=== PATIENT | female | born 1945 | race Caucasian/White ===

== ENCOUNTER 2017-05-09 02:52 | Emergency (ER) | payer OTHER ==
[~2017-05-09] VITALS: Ht 141 cm; Wt 87.6 kg
[~2017-05-09 02:52] MED LIST: ASPI-435 PO; BUPR-79 PO; CHOL1CHW16 PO; DESL5TAB5 PO; GLIM2TAB2 PO; IBUP-103 PO; LISI5TAB3 PO; METF500T5 PO; PRLSR20 PO
[2017-05-09 03:05] VITALS: TEMP 36.6; Ht 141 cm; Wt 87.6 kg
--- NOTE | 2017-05-09 03:37 | EMERGENCY ROOM VISIT NOTE ---
History Report prepared by Mayra: Bebeto Medrano Under the Supervision of: Dr. Lauren Galeas D.O. First contact with patient: 03:20 Chief Complaint: ALLERGIC REACTION Stated Complaint: HIVES; SWOLLEN AND ITCHY History of Present Illness The patient is a 71 year old female who presents to the Emergency Room with complaints of a constant allergic reaction that started around 2100. She rates her pain as a 5/10 in severity. The patient reports that she noticed itchy hives on her lower extremities, abdominal pain, lower back, and head. She states that she took 50 mg of Benadryl at 2200 and 2300 and a Benadryl cream to help relieve symptoms. The patient states that she recently was diagnosed with a UTI four days ago and was given Bactrim. She reports that her last dosage was around 2200. The patient states that she has a history of UTIs and typically gets them 2-3 times a year for the last two years. She reports that she has one more pill left to finish her bottle prescription. The patient reports that she has had a similar allergic reaction in the past when she was given a different antibiotic for her UTI. She states that she has a history of Diabetes and was given Januvia in January. The patient states that Januvia caused her to develop a UTI. She also states that she has been stressed for the last couple of days. The patient denies headache, change in vision, fevers, chest pain, shortness of breath, nausea, vomiting, diarrhea, pain with urination, and melena. Source of History: patient Onset: 2099 Position: other (global) Symptom Intensity: 5/10 Quality: other (itching) Timing: constant Associated Symptoms: No chest pain, No SOB Review of Systems See HPI for pertinent positives & negatives. A total of 10 systems reviewed and were otherwise negative. Past Medical & Surgical Medical Problems: (1) Acute cholecystitis due to biliary calculus (2) Anxiety (3) Asthma (4) Bilateral tubal ligation (5) Bronchitis (6) Carpal tunnel syndrome (7) Deep venous thrombosis of lower extremity (8) Depression (9) Gastroesophageal reflux disease (10) IBS (11) Incontinence (12) Rotator cuff surgery Family History Depression Diabetes mellitus Hypertension Kidney disease Seizures Social History Smoking Status: Never Smoker Alcohol Use: none Drug Use: none Marital Status: Housing Status: lives alone Occupation Status: retired Current/Historical Medications Scheduled Aspirin (Aspirin 81), 81 MG PO QAM Cholecalciferol (Vitamin D3 Adult Gummies), 1,000 UNIT PO DAILY Desloratadine (Desloratadine Odt), 5 MG PO QAM Empagliflozin (Jardiance), 10 MG PO QAM Glimepiride (Glimepiride), 4 MG PO QAM Lisinopril (Lisinopril), 5 MG PO DAILY Metformin Hcl Er (Glucophage Er), 500 MG PO TID Omeprazole (Prilosec), 20 MG PO QAM Ranitidine Hcl (Zantac), 150 MG PO BID Sulfa/Trimethoprim (Bactrim Ds 800MG/160MG), Unknown Dose PO BID Scheduled PRN Diphenhydramine Hcl (Benadryl), 50 MG PO Q6H PRN for ALLERGIC REACTION Ibuprofen Tab (Advil), 400-600 MG PO UD PRN for arthritis Allergies Coded Allergies: Ciprofloxacin (Verified Allergy, Mild, RASH ITCHY, 05/09/17) Latex (Verified Allergy, Unknown, Itchiness and swelling., 05/09/17) Sulfamethoxazole w/Trimethoprim (Verified Allergy, Unknown, urticaria, 05/09) Amoxicillin (Verified Adverse Reaction, Mild, DOES NOT WANT TO TAKE DUE TO YEAST INFECTION, 05/09/17) Codeine (Verified Adverse Reaction, Mild, UPSET UPSET, 05/09/17) Morphine (Verified Adverse Reaction, Unknown, UPSET STOMACH, 05/09/17) Physical Exam Vital Signs Date Time Temp Pulse Resp B/P (MAP) Pulse Ox O2 Delivery O2 Flow Rate FiO2 05/09/17 07:17 95 16 148/89 100 05/09/17 06:35 103 20 197/107 97 05/09/17 05:01 98 16 149/88 98 Room Air 05/09/17 03:27 97 Room Air 05/09/17 03:05 36.6 94 20 154/83 97 Room Air Physical Exam GENERAL: alert, well appearing, well nourished, no distress, non-toxic EYE EXAM: normal conjunctiva, PERRL and EOM's grossly intact OROPHARYNX: no exudate, no erythema, lips, buccal mucosa, and tongue normal and mucous membranes are moist NECK: supple, no nuchal rigidity, no adenopathy, non-tender LUNGS: Clear to auscultation. Normal chest wall mechanics HEART: no murmurs, S1 normal and S2 normal ABDOMEN: abdomen soft, non-tender, normo-active bowel sounds, no masses, no rebound or guarding. BACK: Back is symmetrical on inspection and there is no deformity, no midline tenderness, no CVA tenderness. SKIN: Diffusely scattered urticaria. No facial swelling. no bruising UPPER EXTREMITIES: upper extremities are grossly normal. LOWER EXTREMITIES: No pitting edema. NEURO EXAM: Normal sensorium, cranial nerves II-XII grossly intact, normal speech, no gross weakness of arms, no gross weakness of legs. Gross sensation intact. Medical Decision & Procedures Medications Administered Medications (Trade) Dose Ordered Sig/Christina Route Start Time Stop Time Status Last Admin Dose Admin Famotidine (Pepcid Tab) 20 mg NOW ONCE PO 05/09/17 03:45 05/09/17 03:46 DC 05/09/17 03:45 20 MG Diphenhydramine HCl (Benadryl Cap) 50 mg NOW ONCE PO 05/09/17 03:45 05/09/17 03:46 DC 05/09/17 03:46 50 MG Loratadine (Claritin Tab) 10 mg NOW ONCE PO 05/09/17 05:15 05/09/17 05:16 DC 05/09/17 05:18 10 MG Lorazepam (Ativan Tab) 0.5 mg NOW STAT PO 05/09/17 05:11 05/09/17 05:12 DC 05/09/17 05:19 0.5 MG Lorazepam (Ativan Tab) 0.5 mg NOW STAT SL 05/09/17 06:08 05/09/17 06:09 DC 05/09/17 06:32 0.5 MG Dexamethasone (Decadron Conc Soln) 10 mg NOW STAT PO 05/09/17 06:10 05/09/17 06:16 DC 05/09/17 06:34 10 MG ED Course 0322: The patient was evaluated in room A02. A complete history and physical exam was performed. 0345: Benadryl Cap 50 mg PO, Pepcid Tab 20 mg PO. 0405: I reevaluated the patient and she reports she is still itchy and uncomfortable. I will wait for the medications given to set in. 0511: Ativan Tab 0.5 mg PO. 0515: Claritin Tab 10 mg PO. 0608: Ativan Tab 0.5 mg SL. 0610: Dexamethasone 10 mg PO. 0711: Upon reevaluation, the patient is feeling better. I discussed the findings and the treatment plan with the patient. She verbalizes agreement and understanding. The patient was discharged home. Medical Decision The differential diagnosis includes but is not limited to etiologies such as allergic reaction, anaphylaxis, urticaria, Blount-Henry syndrome, toxic epidermal necrolysis, erythema multiforme, cellulitis, as well as others were entertained. Symptoms and presentation not consistent with anaphylaxis. Vital signs stable throughout. Patient with urticaria and pruritus secondarily. No evidence of Ash Henry's or TEN. Urticaria didn't improved following medication here however patient still complained of some persistent itching. Discussed the patient likely secondary to use of Bactrim patient had taken a dose this evening. Discussed it may take another 24 hours before symptoms improve and the Bactrim was out of her system. I advised her to not take the Bactrim any further, initially had one more dose left to take per her report. Discussed symptoms to watch and return for, continued use of Benadryl as a precaution, follow up with family doctor, she verbalized understanding was agreeable with plan. Medication Reconcilliation Current Medication List: was personally reviewed by me Blood Pressure Screening Patient's blood pressure: Elevated blood pressure Blood pressure disposition: Elevated BP felt to be situational Impression Primary Impression: Urticaria Additional Impression: Allergic reaction Scribe Attestation The scribe's documentation has been prepared under my direction and personally reviewed by me in its entirety. I confirm that the note above accurately reflects all work, treatment, procedures, and medical decision making performed by me. Departure Information Dispostion Home / Self-Care Referrals Aldair Ojeda M.D. (PCP) Forms HOME CARE DOCUMENTATION FORM, IMPORTANT VISIT INFORMATION Patient Instructions My [facility] Additional Instructions Please stop taking the Bactrim as this could be the cause of your allergic reaction and rash. Please take Benadryl every 6 hours to help prevent any additional reaction. You may also by intake Pepcid daily [id number] which will help to block histamine from an allergic reaction also. If you develop any worsening rash, have drainage or discharge, blistering of the rash, develop fevers, chest pain, trouble breathing, facial swelling or swelling in your mouth, difficulty swallowing, or you have any other new concerns, please return the emergency room. Please check your sugar frequently as it may be slightly higher due to the single dose of steroids you were given in the ER. Problem Qualifiers Additional Impression: Allergic reaction Encounter type: initial encounter Qualified Codes: T78.40XA - Allergy, unspecified, initial encounter
[2017-05-09] MEDS ORDERED: FAMOTIDINE 20 MG TAB PO ONE (03:45)
[2017-05-09] MEDS ORDERED: EMPA1TAB PO (03:55)
[2017-05-09] MEDS ORDERED: LSN5 PO (03:56)
[2017-05-09] MEDS ORDERED: LORAZEPAM 0.5 MG TAB PO STA (05:11)
[2017-05-09] MEDS ORDERED: LORATADINE 10 MG TAB PO ONE (05:15)
[2017-05-09] MEDS ORDERED: LORAZEPAM 0.5 MG TAB SL STA (06:08)
[2017-05-09] MEDS ORDERED: DEXAMETHASONE CONC 1 MG/ML 30 ML PO STA ×2 (06:10)
[2017-05-09 07:17] VITALS: BP 148/89; PULSE 95; O2SAT 100
[2017-05-09] MEDS ORDERED: [UNRECOGNIZED DRUG - CODE] PO (22:42)
[2017-05-09] MEDS ORDERED: SULF800T23 PO (22:42)
[2017-05-09] MEDS ORDERED: BND25 PO (22:44)
[2017-05-10] MEDS ORDERED: RANI150T3 PO (00:40)
[2017-06-18] MEDS ORDERED: OMEP40CA41 PO (13:18)
[2017-06-18] MEDS ORDERED: ALPR-385 PO (13:18)
[2017-06-18] MEDS ORDERED: LPR25 PO (13:18)
[2017-06-18] MEDS ORDERED: WLLXL300 PO (13:18)
[2017-06-18] MEDS ORDERED: SITA1TAB27 PO (13:18)
== END 2017-05-09 07:19 | disposition home or self-care (01) ==
LOC: C.EDB 02:53 → C.EDA 07:19
DX: L50.9 Urticaria, unspecified (principal); T78.40XA Allergy, unspecified, initial encounter; X58.XXXA Exposure to other specified factors, initial encounter; E11.9 Type 2 diabetes mellitus without complications; J45.909 Unspecified asthma, uncomplicated; K21.9 Gastro-esophageal reflux disease without esophagitis; Z87.440 Personal history of urinary (tract) infections; Z86.718 Personal history of other venous thrombosis and embolism; Z98.51 Tubal ligation status; Z98.890 Other specified postprocedural states; Z79.82 Long term (current) use of aspirin; Z79.84 Long term (current) use of oral hypoglycemic drugs; Z79.899 Other long term (current) drug therapy; T37.0X1A Poisoning by sulfonamides, accidental (unintentional), initial encounter; F41.9 Anxiety disorder, unspecified; G56.00 Carpal tunnel syndrome, unspecified upper limb; F32.9 Major depressive disorder, single episode, unspecified; K58.9 Irritable bowel syndrome, unspecified; Z83.3 Family history of diabetes mellitus; Z82.49 Family history of ischemic heart disease and other diseases of the circulatory system; Z82.0 Family history of epilepsy and other diseases of the nervous system

== ENCOUNTER 2017-05-09 22:07 | Emergency (ER) | payer OTHER ==
[~2017-05-09] VITALS: Ht 139.7 cm; Wt 89.4 kg
[~2017-05-09 22:07] MED LIST changes: +EMPA1TAB PO; +LSN5 PO
[2017-05-09 22:09] VITALS: TEMP 36.5; Ht 139.7 cm; Wt 89.4 kg
[2017-05-09 22:25] VITALS: O2SAT 93
[2017-05-09] MEDS ORDERED: DiphenhydrAMINE HCL 50 MG/ML VIAL IV STA (22:40)
[2017-05-09] MEDS ORDERED: RANITIDINE HCL 50 MG/100 ML D5W IV STA (22:40)
[2017-05-09] MEDS ORDERED: METHYLPREDNISOLONE 125 MG VIAL IV STA (22:40)
[2017-05-09] MEDS ORDERED: SULF800T23 PO (22:42)
[2017-05-09] MEDS ORDERED: [UNRECOGNIZED DRUG - CODE] PO (22:42)
[2017-05-09] MEDS ORDERED: BND25 PO (22:44)
--- NOTE | 2017-05-09 22:47 | EMERGENCY ROOM VISIT NOTE ---
History Report prepared by Mayra: Kendall Navarro Under the Supervision of: Dr. Alex Arenas M.D. First contact with patient: 22:35 Chief Complaint: SHORTNESS OF BREATH Stated Complaint: HIVES,FEVER,SOB Nursing Triage Summary: pt states she was seen here earlier today for rash/generalized itching. reports being given a steroid shot, preacid tab, and benadryl. states rash and itching is getting worse, spreading to face and neck and pt now feels SOB. pt states she was placed on bactrim thursday for potential UTI. pt alert and oriented x4 at this time. History of Present Illness The patient is a 71 year old female who presents to the Emergency Room with complaints of worsening/spreading bodily hives that the patient first noticed at 0300 this morning, 19.5 hours ago. The patient notes that the hives are very itchy and most prevalent on her trunk and extremities. She also complains that her throat is sore. She was short of breath upon arrival to the emergency department, but claims that this has resolved at this time. The patient noted that she did purchase a new detergent recently, and wore clothes that were washed in this detergent for the first time today. It was not an entirely new brand. She was also taking Bactrim since Thursday evening. Her last dosage was yesterday. She was taking this for a urinary tract infection. The patient has ronna taking Benadryl, her last dosage was at 1830, 4 hours ago. She stated that she has been under some increased stress lately, and thinks that may contribute to her hives. Source of History: patient Onset: 19.5 hours [employer] Position: other (Global) Quality: other (Hives) Timing: worsening (spreading) Associated Symptoms: + sorethroat, + SOB Note: itching Review of Systems All systems have been listed, reviewed, and are negative other than those previously mentioned. Please see Additional Medical History Sheet. Past Medical & Surgical Medical Problems: (1) Acute cholecystitis due to biliary calculus (2) Anxiety (3) Asthma (4) Bilateral tubal ligation (5) Bronchitis (6) Carpal tunnel syndrome (7) Deep venous thrombosis of lower extremity (8) Depression (9) Gastroesophageal reflux disease (10) IBS (11) Incontinence (12) Rotator cuff surgery Family History Depression Diabetes mellitus Hypertension Kidney disease Seizures Social History Smoking Status: Never Smoker Alcohol Use: none Drug Use: none Marital Status: Housing Status: lives alone Occupation Status: retired Current/Historical Medications Scheduled Aspirin (Aspirin 81), 81 MG PO QAM Cholecalciferol (Vitamin D3 Adult Gummies), 1,000 UNIT PO DAILY Desloratadine (Desloratadine Odt), 5 MG PO QAM Empagliflozin (Jardiance), 10 MG PO QAM Glimepiride (Glimepiride), 4 MG PO QAM Lisinopril (Lisinopril), 5 MG PO DAILY Metformin Hcl Er (Glucophage Er), 500 MG PO TID Omeprazole (Prilosec), 20 MG PO QAM Ranitidine Hcl (Zantac), 150 MG PO BID Sulfa/Trimethoprim (Bactrim Ds 800MG/160MG), Unknown Dose PO BID Scheduled PRN Diphenhydramine Hcl (Benadryl), 50 MG PO Q6H PRN for ALLERGIC REACTION Ibuprofen Tab (Advil), 400-600 MG PO UD PRN for arthritis Allergies Coded Allergies: Ciprofloxacin (Verified Allergy, Mild, RASH ITCHY, 05/09/17) Latex (Verified Allergy, Unknown, Itchiness and swelling., 05/09/17) Sulfamethoxazole w/Trimethoprim (Verified Allergy, Unknown, urticaria, 05/09) Amoxicillin (Verified Adverse Reaction, Mild, DOES NOT WANT TO TAKE DUE TO YEAST INFECTION, 05/09/17) Codeine (Verified Adverse Reaction, Mild, UPSET UPSET, 05/09/17) Morphine (Verified Adverse Reaction, Unknown, UPSET STOMACH, 05/09/17) Physical Exam Vital Signs Date Time Temp Pulse Resp B/P (MAP) Pulse Ox O2 Delivery O2 Flow Rate FiO2 05/10/17 01:04 97 18 134/94 93 Room Air 05/09/17 23:04 102 18 140/87 95 Room Air 05/09/17 22:25 93 Room Air 05/09/17 22:22 93 Room Air 05/09/17 22:20 110 05/09/17 22:09 36.5 124 20 161/93 96 Room Air Physical Exam GENERAL: Patient awake, alert, oriented x 3. Patient follows commands. Patient does not appear toxic. Patient is adequately hydrated and well- nourished. SKIN: No erythema, pallor, cyanosis or rash HEENT: Normal head, pupils equal, reactive to light and accommodation. Ears normal. Oral cavity and posterior pharynx appear normal. No uvular edema. Neck : Without adenopathy, no neck vein distention. LUNGS: Clear to auscultation. No wheezes, no rales, no rhonchi. HEART: No murmurs. No gallops. No rubs ABDOMEN: Obese. No masses, no rebound, no hepatomegaly or splenomegaly. EXTREMITIES: No signs of trauma. No pedal or pretibial edema. No calf or thigh tenderness. SKIN: There is urticaria over much of the body, especially arms and legs and abdomen. NEUROLOGIC: Cranial nerves II-XII within normal limits. No gross motor sensory function deficits. Medical Decision & Procedures ER Provider Diagnostic Interpretation: X ray results are stated below per my interpretation: CHEST X-RAY: No acute infiltrates. No pneumothorax. Laboratory Results 05/09/17 22:52 Red Blood Count 4.33, Mean Corpuscular Volume 83.6, Mean Corpuscular Hemoglobin 29.1, Mean Corpuscular Hemoglobin Concent 34.8, Mean Platelet Volume 9.6, Neutrophils (%) (Auto) 81.4, Lymphocytes (%) (Auto) 10.7, Monocytes (%) (Auto) 7.2, Eosinophils (%) (Auto) 0.0, Basophils (%) (Auto) 0.1, Neutrophils # (Auto) 6.72, Lymphocytes # (Auto) 0.88, Monocytes # (Auto) 0.59, Eosinophils # (Auto) 0.00, Basophils # (Auto) 0.01 05/09/17 22:52 Test 05/09/17 22:52 05/10/17 01:32 White Blood Count 8.25 K/uL (4.8-10.8) Red Blood Count 4.33 M/uL (4.2-5.4) Hemoglobin 12.6 g/dL (12.0-16.0) Hematocrit 36.2 % (37-47) Mean Corpuscular Volume 83.6 fL (80-100) Mean Corpuscular Hemoglobin 29.1 pg (25-34) Mean Corpuscular Hemoglobin Concent 34.8 g/dl (32-36) Platelet Count 407 K/uL (130-400) Mean Platelet Volume 9.6 fL (7.4-10.4) Neutrophils (%) (Auto) 81.4 % Lymphocytes (%) (Auto) 10.7 % Monocytes (%) (Auto) 7.2 % Eosinophils (%) (Auto) 0.0 % Basophils (%) (Auto) 0.1 % Neutrophils # (Auto) 6.72 K/uL (1.4-6.5) Lymphocytes # (Auto) 0.88 K/uL (1.2-3.4) Monocytes # (Auto) 0.59 K/uL (0.11-0.59) Eosinophils # (Auto) 0.00 K/uL (0-0.5) Basophils # (Auto) 0.01 K/uL (0-0.2) RDW Standard Deviation 39.0 fL (36.4-46.3) RDW Coefficient of Variation 12.8 % (11.5-14.5) Immature Granulocyte % (Auto) 0.6 % Immature Granulocyte # (Auto) 0.05 K/uL (0.00-0.02) Red Blood Cell Morphology Unremarkable Anion Gap 11.0 mmol/L (3-11) Est Creatinine Clear Calc Drug Dose 33.6 ml/min Estimated GFR () 44.3 Estimated GFR (Non- 38.2 BUN/Creatinine Ratio 19.6 (10-20) Calcium Level 9.0 mg/dl (8.5-10.1) Total Bilirubin 0.3 mg/dl (0.2-1) Aspartate Amino Transf (AST/SGOT) 12 U/L (15-37) Alanine Aminotransferase (ALT/SGPT) 17 U/L (12-78) Alkaline Phosphatase 120 U/L (45-117) Total Protein 7.5 gm/dl (6.4-8.2) Albumin 3.5 gm/dl (3.4-5.0) Globulin 4.0 gm/dl (2.5-4.0) Albumin/Globulin Ratio 0.9 (0.9-2) Beta-Hydroxybutyric Acid 1.93 mg/dL (0.2-2.81) Bedside Glucose 296 mg/dl (70-90) Laboratory results as stated above per my review. Medications Administered Medications (Trade) Dose Ordered Sig/Christina Route Start Time Stop Time Status Last Admin Dose Admin Methylprednisolone Sodium Succinate (Solu-Medrol IV) 125 mg NOW STAT IV 05/09/17 22:40 05/09/17 22:45 DC 05/09/17 22:59 125 MG Ranitidine HCl (zANTac IV) 50 mg NOW STAT IV 05/09/17 22:40 05/09/17 22:45 DC 05/09/17 23:01 50 MG Diphenhydramine HCl (Benadryl Inj) 25 mg NOW STAT IV 05/09/17 22:40 05/09/17 22:45 DC 05/09/17 22:57 25 MG Diphenhydramine HCl (Benadryl Inj) 25 mg NOW STAT IV 05/10/17 00:35 05/10/17 00:37 DC 05/10/17 01:04 25 MG Insulin Human Regular (novoLIN-R U-100 PER UNIT) 8 units NOW STAT IV 05/10/17 00:35 05/10/17 00:37 DC 05/10/17 01:03 8 UNITS Diphenhydramine HCl (Benadryl Inj) 25 mg NOW STAT IV 05/10/17 01:39 05/10/17 01:40 DC 05/10/17 01:54 25 MG ED Course 2236: Past medical records reviewed. The patient was evaluated in room C3. A complete history and physical examination was performed. 2240: Ordered Benadryl 25 mg IV, ZANTac 50 mg IV, Solu-Medrol 125 mg IV. 0027: I reevaluated the patient at this time. She is doing much better. Her rash is starting to subside. Her blood sugar is slightly elevated. 0035: Ordered Regular Human Insulin 8 units IV, Benadryl 25 mg IV. 0140: Patient was reevaluated at this time. The Urticaria has spread to her back. I will order another 25 mg of Benadryl for her. She still feels good to be discharged home. Medical Decision Differential Diagnosis include; Allergic, Anaphylaxis, stress-related urticaria. 71-year-old female with a return visit for allergic reaction to Bactrim. Patient's rash is now worse than it was before. Patient took Benadryl earlier today but did not take any additional Pepcid. Additional labs and imaging were obtained. Chest x-ray does not reveal any infiltrates. Blood sugar is markedly elevated due to the steroids. Patient did improve with IV Benadryl, SoluMedrol and Zantac. The patient was also given IV insulin. She will recheck her blood sugars at home. The patient will continue taking Zantac and Benadryl as needed. She understands this may take a few days before completely resolves. Medication Reconcilliation Current Medication List: was personally reviewed by me Blood Pressure Screening Patient's blood pressure: Elevated blood pressure Blood pressure disposition: Referred to PCP Impression Primary Impression: Allergic reaction caused by a drug Scribe Attestation The scribe's documentation has been prepared under my direction and personally reviewed by me in its entirety. I confirm that the note above accurately reflects all work, treatment, procedures, and medical decision making performed by me. Departure Information Dispostion Home / Self-Care Prescriptions Ranitidine Hcl (ZANTAC) 150 Mg Tab 150 MG PO BID, #10 TAB Prov: Alex Arenas M.D. 05/10/17 Referrals Aldair Ojeda M.D. (PCP) Patient Instructions ED Drug React Allergic, My [facility] Additional Instructions Take 150 mg of Zantac/ranitidine twice a day. Take 50 mg of Benadryl every 4-6 hours as needed for itching and rash. Return here if you become short of breath or you get chest tightness. Check your blood sugar tonight before you go to bed and then at least 2-3 times per day for the next 3 days.
[2017-05-09 23:04] LABS: HEMATOCRIT 36.2 % (37-47); MEAN CELL VOLUME 83.6 fL (80-100); MEAN CORPUSCULAR HEMOGLOBIN 29.1 pg (25-34); MEAN CORPUSCULAR HGB CONC 34.8 g/dl (32-36); MEAN PLATELET VOLUME 9.6 fL (7.4-10.4); PLATELET COUNT 407 K/uL (130-400); RED BLOOD COUNT 4.33 M/uL (4.2-5.4); WHITE BLOOD COUNT 8.25 K/uL (4.8-10.8)
[2017-05-09 23:22] LABS: BASO % 0.1 %; BASO ABS # 0.01 K/uL (0-0.2); COMPLETE YES; IG% 0.6 %; LYMPH % 10.7 %; LYMPH ABS # 0.88 K/uL (1.2-3.4); MONO % 7.2 %; NEUT % 81.4 %
[2017-05-09 23:30] LABS: ALB/GLOB RATIO 0.9 (0.9-2); BUN/CREATININE RATIO 19.6 (10-20); CREATININE 1.4 mg/dl (0.60-1.20); POTASSIUM 4.6 mmol/L (3.5-5.1)
[2017-05-09 23:53] LABS: BETA-HYDROXYBUTYRATE 1.93 mg/dL (0.2-2.81)
[2017-05-10] MEDS ORDERED: NovoLIN-R INSULIN PER UNIT CHARGE IV STA (00:35)
[2017-05-10] MEDS ORDERED: DiphenhydrAMINE HCL 50 MG/ML VIAL IV STA ×2 (00:35→01:39)
[2017-05-10] MEDS ORDERED: RANI150T3 PO (00:40)
[2017-05-10 02:23] VITALS: BP 146/105; PULSE 101; O2SAT 93
--- NOTE | 2017-05-10 08:20 | DIAGNOSTIC IMAGING REPORT ---
CHEST ONE VIEW PORTABLE HISTORY: allergic reaction COMPARISON: Chest 06/17/2016. FINDINGS: The lungs are clear. Cardiac silhouette is normal in size. No pleural effusions. No pneumothorax. IMPRESSION: No acute process. Electronically signed by: Ruel Watts M.D. 05/10/2017 8:18 AM Dictated Date/Time: 05/10/2017 8:18 AM
[2017-06-18] MEDS ORDERED: WLLXL300 PO (13:18)
[2017-06-18] MEDS ORDERED: OMEP40CA41 PO (13:18)
[2017-06-18] MEDS ORDERED: SITA1TAB27 PO (13:18)
[2017-06-18] MEDS ORDERED: ALPR-385 PO (13:18)
[2017-06-18] MEDS ORDERED: LPR25 PO (13:18)
== END 2017-05-10 02:23 | disposition home or self-care (01) ==
LOC: C.EDB 22:08 → C.EDC 05-10 02:23
DX: T37.0X1A Poisoning by sulfonamides, accidental (unintentional), initial encounter (principal); F41.9 Anxiety disorder, unspecified; J45.909 Unspecified asthma, uncomplicated; G56.00 Carpal tunnel syndrome, unspecified upper limb; F32.9 Major depressive disorder, single episode, unspecified; K21.9 Gastro-esophageal reflux disease without esophagitis; K58.9 Irritable bowel syndrome, unspecified; Z83.3 Family history of diabetes mellitus; Z82.49 Family history of ischemic heart disease and other diseases of the circulatory system; Z82.0 Family history of epilepsy and other diseases of the nervous system; Z79.82 Long term (current) use of aspirin; Z79.899 Other long term (current) drug therapy

== ENCOUNTER 2017-06-16 05:34 | Observation (INO) | payer OTHER ==
[2017-06-16] VITALS (7 sets, daily range): BP systolic 111–129; BP diastolic 72–81; PULSE 81–92; TEMP 36.4–36.7; O2SAT 95–98; Ht 139.7 cm; Wt 86.6 kg
[~2017-06-16] VITALS: Ht 139.7 cm; Wt 86.6 kg
[~2017-06-16 05:34] MED LIST changes: +BND25 PO; -BUPR-79 PO; -DESL5TAB5 PO; -LISI5TAB3 PO; +RANI150T3 PO; +SULF800T23 PO; +[UNRECOGNIZED DRUG - CODE] PO
[2017-06-16] MEDS ORDERED: NITROGLYCERIN OINT 2% 1GM PACKET EXT ONE (06:00)
[2017-06-16 06:08] LABS: BASO % 0.2 %; BASO ABS # 0.02 K/uL (0-0.2); COMPLETE YES; EOS % 2.4 %; HEMATOCRIT 33.7 % (37-47); IG% 0.9 %; MEAN CELL VOLUME 84.5 fL (80-100); MEAN CORPUSCULAR HEMOGLOBIN 29.3 pg (25-34); MEAN CORPUSCULAR HGB CONC 34.7 g/dl (32-36); MEAN PLATELET VOLUME 9.7 fL (7.4-10.4); MONO % 6.6 %; NEUT % 56.9 %; PLATELET COUNT 335 K/uL (130-400); RED BLOOD COUNT 3.99 M/uL (4.2-5.4); WHITE BLOOD COUNT 8.18 K/uL (4.8-10.8)
--- NOTE | 2017-06-16 06:10 | EMERGENCY ROOM VISIT NOTE ---
ED Visit Note First contact with patient: 05:39 I have personally evaluated and examined this patient. I agree with assessment and plan of Roger Longo PA-C. 71 yr old diabetic female with substernal CP radiation to neck this evening. Extensive fam history of cardiac disease. Symptoms resolved with [facility] by EMS. [employer] HOST.
[2017-06-16 06:16] LABS: BUN/CREATININE RATIO 23.1 (10-20); CALCIUM 8.4 mg/dl (8.5-10.1); CREATININE 0.84 mg/dl (0.60-1.20); MAGNESIUM 1.8 mg/dl (1.8-2.4); POTASSIUM 3.7 mmol/L (3.5-5.1)
[2017-06-16 06:18] LABS: ALB/GLOB RATIO 0.9 (0.9-2)
[2017-06-16 06:21] LABS: INR 0.9 (0.9-1.1)
[2017-06-16 06:27] LABS: BETA-HYDROXYBUTYRATE 1.33 mg/dL (0.2-2.81); THYROID STIMULATING HORMONE 4.38 uIu/ml (0.300-4.500)
--- NOTE | 2017-06-16 06:40 | EMERGENCY ROOM VISIT NOTE ---
History First contact with patient: 05:39 Chief Complaint: CHEST PAIN Stated Complaint: CHEST PAIN Nursing Triage Summary: Pt arrived via [facility] from home. EMS reports pt awoke 15min BOAT HAND with 10/10 CP with SOB and nausea. Upon EMS arrival CP was rated 8/10 and radiated to neck and left arm. Pt took home 324 ASA at home. EMS provided pt with 3x nitro which brought pain down to a 1-2/10. Pt also given 4mg IV zofran for nausea. Upon arrival to ED pt reports pain was 1-2/10. Denies SOB or nausea at this time. Lungs clear and equal bilaterally. Pt reports new cough and "acid feeling " in her throat. History of Present Illness The patient is a 71 year old female who presents to the Emergency Room with complaints of central chest pain radiating to her neck and left arm. The patient's symptoms began about 1 hour ago and woke her from sleep. She rated her discomfort at that time a 10/10 with associated shortness of breath, diaphoresis, nausea. The patient did take 324 mg aspirin at home, and she was given 3 doses of nitroglycerin by EMS. This reportedly brought her pain down to a 1/10. The patient is a poorly controlled diabetic. She has a very strong history of family heart disease. The patient has not had recent fever or chills. She does not report recent travel history. Review of Systems More than 10 systems were reviewed and otherwise negative with the exception of history of present illness. Past Medical/Surgical History Medical Problems: (1) Acute cholecystitis due to biliary calculus (2) Anxiety (3) Asthma (4) Bilateral tubal ligation (5) Bronchitis (6) Carpal tunnel syndrome (7) Deep venous thrombosis of lower extremity (8) Depression (9) Gastroesophageal reflux disease (10) IBS (11) Incontinence (12) Rotator cuff surgery Family History Depression Diabetes mellitus Hypertension Kidney disease Seizures Social History Smoking Status: Never Smoker Alcohol Use: none Drug Use: none Marital Status: Housing Status: lives alone Occupation Status: retired Current/Historical Medications Scheduled Aspirin (Aspirin 81), 81 MG PO QAM Cholecalciferol (Vitamin D3 Adult Gummies), 1,000 UNIT PO DAILY Desloratadine (Desloratadine Odt), 5 MG PO QAM Empagliflozin (Jardiance), 10 MG PO QAM Glimepiride (Glimepiride), 4 MG PO QAM Lisinopril (Lisinopril), 5 MG PO DAILY Metformin Hcl Er (Glucophage Er), 500 MG PO TID Omeprazole (Prilosec), 20 MG PO QAM Ranitidine Hcl (Zantac), 150 MG PO BID Scheduled PRN Diphenhydramine Hcl (Benadryl), 50 MG PO Q6H PRN for ALLERGIC REACTION Ibuprofen Tab (Advil), 400-600 MG PO UD PRN for arthritis Physical Exam Vital Signs Date Time Temp Pulse Resp B/P (MAP) Pulse Ox O2 Delivery O2 Flow Rate FiO2 06/16/17 06:04 85 15 95 06/16/17 05:41 91 06/16/17 05:36 146/77 06/16/17 05:34 97 Room Air 06/16/17 05:34 36.8 91 18 146/77 97 Room Air 06/16/17 05:34 97 Room Air Physical Exam VITALS: Vitals are noted on the nurse's note and reviewed by myself. Vital signs stable. GENERAL: Well-developed, well-nourished, white female, who is in no acute distress and resting comfortably. Patient is cooperative with the examination. HEART: Regular rate and rhythm without murmurs gallops or rubs. LUNGS: Clear to auscultation bilaterally without wheezes, rales or rhonchi. No retractions or accessory muscle use. ABDOMEN: Positive normal bowel sounds x 4. Soft, nontender, without masses or organomegaly. No guarding or rebound tenderness. MUSCULOSKELETAL: No muscle atrophy, erythema, or edema noted. Full range of motion without joint tenderness in all extremities. Medical Decision & Procedures Laboratory Results 06/16/17 05:44 Red Blood Count 3.99, Mean Corpuscular Volume 84.5, Mean Corpuscular Hemoglobin 29.3, Mean Corpuscular Hemoglobin Concent 34.7, Mean Platelet Volume 9.7, Neutrophils (%) (Auto) 56.9, Lymphocytes (%) (Auto) 33.0, Monocytes (%) (Auto) 6.6, Eosinophils (%) (Auto) 2.4, Basophils (%) (Auto) 0.2, Neutrophils # (Auto) 4.65, Lymphocytes # (Auto) 2.70, Monocytes # (Auto) 0.54, Eosinophils # (Auto) 0.20, Basophils # (Auto) 0.02 06/16/17 05:44 Test 06/16/17 05:44 06/16/17 05:56 06/16/17 06:20 White Blood Count 8.18 K/uL (4.8-10.8) Red Blood Count 3.99 M/uL (4.2-5.4) Hemoglobin 11.7 g/dL (12.0-16.0) Hematocrit 33.7 % (37-47) Mean Corpuscular Volume 84.5 fL (80-100) Mean Corpuscular Hemoglobin 29.3 pg (25-34) Mean Corpuscular Hemoglobin Concent 34.7 g/dl (32-36) Platelet Count 335 K/uL (130-400) Mean Platelet Volume 9.7 fL (7.4-10.4) Neutrophils (%) (Auto) 56.9 % Lymphocytes (%) (Auto) 33.0 % Monocytes (%) (Auto) 6.6 % Eosinophils (%) (Auto) 2.4 % Basophils (%) (Auto) 0.2 % Neutrophils # (Auto) 4.65 K/uL (1.4-6.5) Lymphocytes # (Auto) 2.70 K/uL (1.2-3.4) Monocytes # (Auto) 0.54 K/uL (0.11-0.59) Eosinophils # (Auto) 0.20 K/uL (0-0.5) Basophils # (Auto) 0.02 K/uL (0-0.2) RDW Standard Deviation 39.8 fL (36.4-46.3) RDW Coefficient of Variation 13.1 % (11.5-14.5) Immature Granulocyte % (Auto) 0.9 % Immature Granulocyte # (Auto) 0.07 K/uL (0.00-0.02) Prothrombin Time 10.0 SECONDS (9.0-12.0) Prothromb Time International Ratio 0.9 (0.9-1.1) Activated Partial Thromboplast Time 25.7 SECONDS (21.0-31.0) Partial Thromboplastin Ratio 1.0 Anion Gap 9.0 mmol/L (3-11) Est Creatinine Clear Calc Drug Dose 56.1 ml/min Estimated GFR () 82.2 Estimated GFR (Non- 70.9 BUN/Creatinine Ratio 23.1 (10-20) Calcium Level 8.4 mg/dl (8.5-10.1) Magnesium Level 1.8 mg/dl (1.8-2.4) Total Bilirubin 0.2 mg/dl (0.2-1) Aspartate Amino Transf (AST/SGOT) 8 U/L (15-37) Alanine Aminotransferase (ALT/SGPT) 17 U/L (12-78) Alkaline Phosphatase 118 U/L (45-117) Total Protein 6.9 gm/dl (6.4-8.2) Albumin 3.2 gm/dl (3.4-5.0) Globulin 3.7 gm/dl (2.5-4.0) Albumin/Globulin Ratio 0.9 (0.9-2) Lipase 141 U/L (73-393) Beta-Hydroxybutyric Acid 1.33 mg/dL (0.2-2.81) Thyroid Stimulating Hormone (TSH) 4.380 uIu/ml (0.300-4.500) Bedside Troponin I < 0.030 ng/ml (0-0.045) Medications Administered Medications (Trade) Dose Ordered Sig/Christina Route Start Time Stop Time Status Last Admin Dose Admin Nitroglycerin (Nitroglycerin 2% Oint) 1 inch NOW ONCE EXT 06/16/17 06:00 06/16/17 06:01 DC 06/16/17 05:54 1 [facility] ED Course Physical exam and history were performed. Nursing notes, EMR, and Medication List were personally reviewed. Patient appears to have chest pain with radiation to her neck and arm. Her symptoms did nearly completely resolved with aspirin and nitroglycerin prehospital. EKG was performed here in the department and was normal sinus rhythm without acute ST elevation. IV access was established and labs were obtained. The patient was given Nitropaste and placed on a nurse monitoring. The patient's blood work is as above and was reviewed. She does not have a significantly elevated white blood cell count, gross anemia, bandemia, or significant electrolyte imbalance. Her glucose is greater than 300, and evidently she has been running in this level for some time. Her troponin 1 is negative and she remained in normal sinus rhythm while on the nurse monitoring. Chest x-ray did not show obvious acute process with radiology read pending. Overall the patient does not appear stable for discharge home. Her symptoms are highly concerning for possible cardiac etiology. [facility] the patient here in the department. Please see their dictation for further patient course, plan, and disposition. The chart was completed utilizing [employer] Speech Voice Recognition Software. Grammatical errors, random word insertions, pronoun errors, and incomplete sentences are an occasional consequence of this system due to software limitations, ambient noise, and hardware issues. Any formal questions or concerns about the content, text, or information contained within the body of this dictation should be directly addressed to the provider for clarification. . Medical Decision Differential diagnosis includes, but is not limited to: Myocardial infarction, dysrhythmia, pericarditis, pneumothorax, aortic aneurysm/dissection, DVT/PE, anxiety, GERD, PUD, electrolyte imbalance, thyroid disorder, pneumonia, bronchitis, pancreatitis, and others Medication Reconcilliation Current Medication List: was personally reviewed by me Blood Pressure Screening Patient's blood pressure: Normal blood pressure Impression Primary Impression: Central chest pain Departure Information Referrals Aldair Ojeda M.D. (PCP) Patient Instructions My [facility]
[2017-06-16 06:43] LABS: URINE APPEARANCE CLOUDY (CLEAR); URINE BILIRUBIN NEG (NEG); URINE COLOR YELLOW; URINE EPITHELIAL CELL AUTO >30 /lpf (0-5); URINE NITRITE NEG (NEG); URINE SPECIFIC GRAVITY 1.033 (1.000-1.030); UROBILINOGEN NEG (NEG); ZZUR CULT IF INDIC CLEAN CATCH NO
[2017-06-16 06:44] LABS: MANUAL MICROSCOPIC REQUIRED? NO; REVIEW REQ? NO
[2017-06-16] MEDS ORDERED: NITROGLYCERIN 0.4 MG SL PER TAB CHARGE SL PRN (06:45)
[2017-06-16] MEDS ORDERED: ACETAMINOPHEN 325 MG TAB PO PRN (06:45)
[2017-06-16] MEDS ORDERED: GLUCOSE 10 TABS/TUBE PO PRN (07:15)
[2017-06-16] MEDS ORDERED: GLUCAGON FOR INJ 1 MG VIAL SQ PRN (07:15)
[2017-06-16] MEDS ORDERED: GLUCOSE 40% GEL 15 GM TUBE PO PRN (07:15)
[2017-06-16] MEDS ORDERED: DEXTROSE 50% 50 ML SYR IV PRN (07:15)
--- NOTE | 2017-06-16 07:51 | DIAGNOSTIC IMAGING REPORT ---
CHEST ONE VIEW PORTABLE CLINICAL HISTORY: chest pain pain COMPARISON STUDY: No previous studies for comparison. FINDINGS: The bones soft tissues and hemidiaphragms are normal. The cardiomediastinal silhouette is normal. The lungs are clear. The pulmonary vasculature is normal. IMPRESSION: Negative chest. The above report was generated using voice recognition software. It may contain grammatical, syntax or spelling errors. Electronically signed by: Aldair Torrez M.D. 06/16/2017 7:50 AM Dictated Date/Time: 06/16/2017 7:50 AM
[2017-06-16] MEDS ORDERED: SODIUM CHLORIDE 0.9% 1000ML 1,000 ML IV SCH (08:30)
[2017-06-16] MEDS ORDERED: IV FLUIDS COMPLETED PRN (08:30)
[2017-06-16] MEDS ORDERED: PANTOprazole SOD 40 MG TAB PO STA (08:46)
[2017-06-16] MEDS ORDERED: INSULIN GLARGINE SOLOSTAR 100 UNITS/ML 3 ML PEN SC SCH ×3 (09:00→21:00)
[2017-06-16] MEDS ORDERED: ENOXAPARIN 40 MG/0.4 ML SYR SQ ONE (09:15)
--- NOTE | 2017-06-16 09:15 | History and Physical ---
History & Physical Date & Time of Service: Jun 16, 2017 at 08:52 Chief Complaint: Chest Pain Primary Care Physician: Aldair Ojeda M.D. History of Present Illness Source: patient, clinic records This is a 71 year old female with a PMH of depression/anxiety, uncontrolled DM2 , HTN, GERD presents with chest pain; she states that she was woken up by this chest pain; she stated it felt like acidic burning in her substernal/epigastric region; she had a bad taste in her mouth as well - she took four aspirin and cecilia-seltzer but did not feel better. She called the EMS - because her blood pressure was in the 180s systolically; she was given a nitro spray en route and was noted to have some respiratory distress on the way here. Once she presented here, she was given a nitro patch and felt better. She states that she has been struggling with anxiety/depression and this is the time of year that her about 16 years prior and that has been bothering her. She has also had trouble managing her diabetes; her last Ha1c was 8.6% and she knows it is probably worse now. She takes Prilosec 20mg daily as well as Zantac for her GERD. I saw her in room 277; she denied symptoms currently. Denies shortness of breath/chest pain at this time; no palpitations; no nausea/ vomiting/diarrhea, no fevers/chills +pain at the R knee, which is chronic Past Medical/Surgical History Medical Problems: (1) Anxiety Status: Chronic (2) Asthma Status: Resolved (3) Bilateral tubal ligation Status: Resolved (4) Bronchitis Status: Resolved (5) Carpal tunnel syndrome Status: Chronic (6) Deep venous thrombosis of lower extremity Status: Resolved (7) Depression Status: Chronic (8) Gastroesophageal reflux disease Status: Chronic (9) IBS Status: Chronic (10) Incontinence Status: Chronic (11) Rotator cuff surgery Status: Resolved Family History Depression Diabetes mellitus Hypertension Kidney disease Seizures Social History Smoking Status: Never Smoker Drug Use: none Marital Status: Housing status: lives alone Occupational Status: retired Immunizations History of Influenza Vaccine: No History of Tetanus Vaccine?: No History of Pneumococcal: No History of Hepatitis B Vaccine: Unknown Multi-Drug Resistant Organisms History of MDRO: No Allergies Coded Allergies: Ciprofloxacin (Verified Allergy, Mild, RASH ITCHY, 06/16/17) Latex (Verified Allergy, Unknown, Itchiness and swelling., 06/16/17) Sulfa Antibiotics (Verified Allergy, Unknown, unknown, 06/16/17) Sulfamethoxazole w/Trimethoprim (Verified Allergy, Unknown, urticaria, 09/20) Amoxicillin (Verified Adverse Reaction, Mild, DOES NOT WANT TO TAKE DUE TO YEAST INFECTION, 06/16/17) Codeine (Verified Adverse Reaction, Mild, UPSET UPSET, 06/16/17) Morphine (Verified Adverse Reaction, Unknown, UPSET STOMACH, 06/16/17) Home Medications Scheduled Aspirin (Aspirin 81), 81 MG PO QAM Cholecalciferol (Vitamin D3 Adult Gummies), 1,000 UNIT PO DAILY Desloratadine (Desloratadine Odt), 5 MG PO QAM Empagliflozin (Jardiance), 10 MG PO QAM Glimepiride (Glimepiride), 4 MG PO QAM Lisinopril (Lisinopril), 5 MG PO DAILY Metformin Hcl Er (Glucophage Er), 500 MG PO TID Omeprazole (Prilosec), 20 MG PO QAM Ranitidine Hcl (Zantac), 150 MG PO BID Scheduled PRN Diphenhydramine Hcl (Benadryl), 50 MG PO Q6H PRN for ALLERGIC REACTION Ibuprofen Tab (Advil), 400-600 MG PO UD PRN for arthritis Review of Systems Constitutional: No fever, No chills, No sweats, No weakness, No fatigue Respiratory: No cough, No sputum, No wheezing, No shortness of breath, No dyspnea on exertion, No dyspnea at rest, No hemoptysis Cardiovascular: + chest pain, No edema Abdomen: No pain, No nausea, No vomiting, No diarrhea, No constipation, No GI bleeding Musculoskeletal: No joint pain, No muscle pain Genitourinary - Female: No dysuria, No urinary frequency, No urinary urgency, No urinary incontinence, No urinary retention, No hematuria Neurologic: No memory loss Psychiatric: + depression symptoms, + anxiety (controlled with medications) Hematologic / Lymphatic: No abnormal bleeding/bruising Integumentary: No rash Allergic / Immunologic: No environmental allergies, No seasonal allergies Physical Exam Vital Signs Date Time Temp Pulse Resp B/P (MAP) Pulse Ox O2 Delivery O2 Flow Rate FiO2 06/16/17 08:13 36.4 81 16 111/75 96 Room Air 06/16/17 07:30 80 16 123/74 97 Room Air 06/16/17 06:30 142/81 06/16/17 06:09 83 14 96 06/16/17 06:04 85 15 95 06/16/17 05:41 91 06/16/17 05:36 146/77 06/16/17 05:34 97 Room Air 06/16/17 05:34 36.8 91 18 146/77 97 Room Air 06/16/17 05:34 97 Room Air General Appearance: no apparent distress, + obese Head: normocephalic, atraumatic Eyes: normal inspection, EOMI ENT: normal ENT inspection, hearing grossly normal Neck: supple, no JVD Respiratory/Chest: chest non-tender, lungs clear, normal breath sounds, no respiratory distress, no accessory muscle use Cardiovascular: regular rate, rhythm, no edema, no gallop, no JVD, no murmur, normal peripheral pulses Abdomen/GI: normal bowel sounds, non tender, soft Back: no CVA tenderness, no muscle spasm Extremities/Musculoskelatal: normal inspection, no calf tenderness, normal capillary refill, no pedal edema, normal range of motion, + pertinent finding ( tender R knee) Neurologic/Psych: porcelain waxer II-XII nml as tested, no motor/sensory deficits, alert, normal mood/affect, oriented x 3 Skin: normal color Lymphatic: no adenopathy Diagnostics Laboratory Results Results Past 24 Hours Test 06/16/17 05:44 06/16/17 05:56 06/16/17 06:20 06/16/17 08:49 Range/Units White Blood Count 8.18 4.8-10.8 K/uL Red Blood Count 3.99 4.2-5.4 M/uL Hemoglobin 11.7 12.0-16.0 g/dL Hematocrit 33.7 37-47 % Mean Corpuscular Volume 84.5 80-100 fL Mean Corpuscular Hemoglobin 29.3 25-34 pg Mean Corpuscular Hemoglobin Concent 34.7 32-36 g/dl Platelet Count 335 130-400 K/uL Mean Platelet Volume 9.7 7.4-10.4 fL Neutrophils (%) (Auto) 56.9 % Lymphocytes (%) (Auto) 33.0 % Monocytes (%) (Auto) 6.6 % Eosinophils (%) (Auto) 2.4 % Basophils (%) (Auto) 0.2 % Neutrophils # (Auto) 4.65 1.4-6.5 K/uL Lymphocytes # (Auto) 2.70 1.2-3.4 K/uL Monocytes # (Auto) 0.54 0.11-0.59 K/uL Eosinophils # (Auto) 0.20 0-0.5 K/uL Basophils # (Auto) 0.02 0-0.2 K/uL RDW Standard Deviation 39.8 36.4-46.3 fL RDW Coefficient of Variation 13.1 11.5-14.5 % Immature Granulocyte % (Auto) 0.9 % Immature Granulocyte # (Auto) 0.07 0.00-0.02 K/uL Prothrombin Time 10.0 9.0-12.0 SECONDS Prothromb Time International Ratio 0.9 0.9-1.1 Activated Partial Thromboplast Time 25.7 21.0-31.0 SECONDS Partial Thromboplastin Ratio 1.0 Sodium Level 134 136-145 mmol/L Potassium Level 3.7 3.5-5.1 mmol/L Chloride Level 101 98-107 mmol/L Carbon Dioxide Level 24 21-32 mmol/L Anion Gap 9.0 3-11 mmol/L Blood Urea Nitrogen 19 7-18 mg/dl Creatinine 0.84 0.60-1.20 mg/dl Est Creatinine Clear Calc Drug Dose 56.1 ml/min Estimated GFR () 82.2 Estimated GFR (Non- 70.9 BUN/Creatinine Ratio 23.1 10-20 Random Glucose 332 70-99 mg/dl Calcium Level 8.4 8.5-10.1 mg/dl Magnesium Level 1.8 1.8-2.4 mg/dl Total Bilirubin 0.2 0.2-1 mg/dl Aspartate Amino Transf (AST/SGOT) 8 15-37 U/L Alanine Aminotransferase (ALT/SGPT) 17 12-78 U/L Alkaline Phosphatase 118 45-117 U/L Total Protein 6.9 6.4-8.2 gm/dl Albumin 3.2 3.4-5.0 gm/dl Globulin 3.7 2.5-4.0 gm/dl Albumin/Globulin Ratio 0.9 0.9-2 Lipase 141 73-393 U/L Beta-Hydroxybutyric Acid 1.33 0.2-2.81 mg/dL Thyroid Stimulating Hormone (TSH) 4.380 0.300-4.500 uIu/ml Bedside Troponin I < 0.030 0-0.045 ng/ml Urine Color YELLOW Urine Appearance CLOUDY CLEAR Urine pH 5.0 4.5-7.5 Urine Specific [place] 1.033 1.000-1.030 Urine Protein NEG NEG Urine Glucose (UA) 3+ NEG Urine Ketones TRACE NEG Urine Occult Blood TRACE NEG Urine Nitrite NEG NEG Urine Bilirubin NEG NEG Urine Urobilinogen NEG NEG Urine Leukocyte Esterase NEG NEG Urine WBC (Auto) 1-5 0-5 /hpf Urine RBC (Auto) 0-4 0-4 /hpf Urine Hyaline Casts (Auto) 0 0-5 /lpf Urine Epithelial Cells (Auto) >30 0-5 /lpf Urine Bacteria (Auto) NEG NEG Diagnostic Radiology CHEST ONE VIEW PORTABLE CLINICAL HISTORY: chest pain pain COMPARISON STUDY: No previous studies for comparison. FINDINGS: The bones soft tissues and hemidiaphragms are normal. The cardiomediastinal silhouette is normal. The lungs are clear. The pulmonary vasculature is normal. IMPRESSION: Negative chest. EKG Normal sinus rhythm Normal ECG Impression Assessment and Plan This is a 71 year old female with a PMH of depression/anxiety, uncontrolled DM2 , HTN, GERD presents with chest pain Chest Pain r/o ACS the pain seems more like GERD/reflux pain will add Protonix BID and continue Zantac BID dosing initial set of cardiac enzymes negative, EKG with no ST-T wave changes she does have risk factors though, including uncontrolled DM2 and hypertension will manage risk factors, improved blood pressure control, improved glycemic control; check lipid panel in AM trend cardiac enzymes check echo monitor in tele continue aspirin, nitro paste for now cardiology consultation to assess risk: inpatient vs. outpatient stress GERD pain is likely reflux related pain she takes Prilosec 20mg and Zantac 150mg BID I'll change to Protonix 40mg BID + Zantac - will need this on discharge Uncontrolled DM2 Ha1c in January 2017 = 8.6% she states that she is not having success with her diabetes due to seasonal depression currently takes metformin and glimepiride, which we will hold insulin sliding scale, Lantus 5 units BID check Ha1c R knee pain was to see PCP for a chronic R knee pain check radiograph HTN continue Lisinopril, BP well controlled right now DVT ppx Lovenox (does have a hx. of DVT in the past) FULL CODE Advanced Directives Existing Living Will: No Existing Power of Color Laboratory Technician: No VTE Prophylaxis VTE Risk Assessment Done? Y/N: Yes Risk Level: Moderate
[2017-06-16 09:47] LABS: ESTIMATED AVERAGE GLUCOSE 232 mg/dl; HA1C FLAG Normal (Normal)
[2017-06-16] MEDS ORDERED: INSULIN GLARGINE SOLOSTAR 100 UNITS/ML 3 ML PEN SC ONE ×2 (10:00→11:15)
--- NOTE | 2017-06-16 10:09 | DIAGNOSTIC IMAGING REPORT ---
RIGHT KNEE 4 OR MORE VIEWS CLINICAL HISTORY: 71 years-old Female presenting with R knee pain Right. TECHNIQUE: Frontal, lateral, tunnel, and sunrise views of the right knee were obtained. COMPARISON: None. FINDINGS: Knee joint congruent. Joint space preserved. Tricompartmental osteophytosis most significant at the patellofemoral and lateral compartments. No acute fracture or malalignment. No large knee joint effusion. Regional soft tissues within normal limits. IMPRESSION: Tricompartmental degenerative change, most severe in the patellofemoral and lateral compartments. Joint space preserved. Electronically signed by: Agus Russlel M.D. 06/16/2017 10:08 AM Dictated Date/Time: 06/16/2017 10:07 AM
[2017-06-16] MEDS: ASPIRIN 81 MG ECTAB PO SCH (10:35)
[2017-06-16] MEDS: BuPROPion XL 300 MG TABCR PO SCH (10:36)
[2017-06-16] MEDS: PANTOprazole SOD 40 MG TAB PO SCH ×2 (10:36→20:42)
[2017-06-16] MEDS: RANITIDINE HCL 150 MG TAB PO SCH ×2 (10:36→20:42)
[2017-06-16] MEDS: LISINOPRIL 5 MG TAB PO SCH (10:37)
[2017-06-16] MEDS ORDERED: NURSING VERBAL MED ORDER ONE (10:45)
[2017-06-16] MEDS: INSULIN ASPART 100 UNITS/ML 3 ML PEN SC SCH ×3 (12:12→20:40)
[2017-06-16 15:24] LABS: CKMB/CK RATIO 1.7 (0-3.0)
--- NOTE | 2017-06-16 15:50 | CARDIOLOGY CONSULTATION ---
DATE OF CONSULTATION: 06/16/2017 DATE OF CONSULTATION: 06/16/2017 REFERRING PHYSICIAN: Daxa araujo. REASON FOR CONSULTATION: Chest pain. HISTORY OF PRESENT ILLNESS: This is a 71-year-old female with a history of diabetes, hypertension and severe GERD. She also has a history of anxiety and depression which seems to worsen around this time of the year when her approximately 16 years ago. Last evening she had severe reflux with pain. She decided to present to the Emergency Department where she has been admitted for observation. Her admitting EKG showed no acute changes and her first troponins have been negative, although there are further in the series pending. ALLERGIES: CIPROFLOXACIN, LATEX, SULFA ANTIBIOTICS, BACTRIM, AMOXICILLIN, CODEINE AND MORPHINE. PAST MEDICAL HISTORY: As outlined above, the patient has a long history of gastroesophageal reflux. She also has irritable bowel syndrome. She has a history of anxiety and depression. No prior history of heart disease. She has been treated for hypertension and type 2 diabetes. SOCIAL HISTORY: She is a never smoker. She is a and lives alone. FAMILY MEDICAL HISTORY: Significant for diabetes and hypertension. REVIEW OF SYSTEMS: The 10-point review of systems is negative except for the history of chief complaint. PHYSICAL EXAMINATION: GENERAL: She is alert and oriented. VITAL SIGNS: Blood pressure is 110/70. Pulse is regular at 80. She is afebrile. HEAD, EYES, EARS, NOSE, AND THROAT: She is normocephalic. Pupils are equal and reactive to light. Extraocular muscles are intact bilaterally. NECK: The neck veins are flat. Carotids have good upstrokes bilaterally without bruits. Thyroid is nonpalpable. RESPIRATORY: Breath sounds equal bilaterally and clear to auscultation. CARDIOVASCULAR: Heart has a regular rhythm. Normal S1, S2. No S3, S4. No cardiac rubs or murmurs. GASTROINTESTINAL: Abdomen is soft, nontender without organomegaly. EXTREMITIES: Free of edema, digit clubbing, or cyanosis. NEUROLOGIC: Grossly intact. SKIN: Warm to touch. LYMPH NODES: Negative to palpation. IMPRESSION: 1. Atypical chest pain. 2. History of gastroesophageal reflux disease and reflux. 3. Diabetes mellitus. 4. Hypertension. 5. Anxiety, depression. RECOMMENDATIONS: So far the patient's cardiac markers have been negative and her EKG shows no acute changes. I would recommend completing her set of cardiac markers and if they remain negative and she has no additional chest pain, then we will perform a dobutamine stress echocardiogram tomorrow to screen her for coronary artery disease as she does have risk factors. I would, however, continue to treat her reflux. I will have further recommendations following the above.
[2017-06-16] MEDS: INSULIN GLARGINE SOLOSTAR 100 UNITS/ML 3 ML PEN SC SCH (20:41)
[2017-06-16] MEDS ORDERED: LORAZEPAM 0.5 MG TAB PO ONE (21:00)
[2017-06-16 23:18] LABS: CKMB/CK RATIO 1.9 (0-3.0)
[2017-06-17] VITALS (7 sets, daily range): BP systolic 101–138; BP diastolic 63–81; PULSE 77–87; TEMP 36.7–36.9; O2SAT 94–97
[2017-06-17 07:21] LABS: HEMATOCRIT 32.1 % (37-47); MEAN CELL VOLUME 85.4 fL (80-100); MEAN CORPUSCULAR HEMOGLOBIN 29.5 pg (25-34); MEAN CORPUSCULAR HGB CONC 34.6 g/dl (32-36); MEAN PLATELET VOLUME 9.3 fL (7.4-10.4); PLATELET COUNT 292 K/uL (130-400); RED BLOOD COUNT 3.76 M/uL (4.2-5.4); WHITE BLOOD COUNT 7.49 K/uL (4.8-10.8)
[2017-06-17 07:59] LABS: BUN/CREATININE RATIO 20.6 (10-20); CALCIUM 8.8 mg/dl (8.5-10.1); CHOLESTEROL/HDL RATIO 2.3; CREATININE 0.6 mg/dl (0.60-1.20); POTASSIUM 3.7 mmol/L (3.5-5.1)
[2017-06-17] MEDS: ASPIRIN 81 MG ECTAB PO SCH (07:59)
[2017-06-17] MEDS: BuPROPion XL 300 MG TABCR PO SCH (07:59)
[2017-06-17] MEDS: PANTOprazole SOD 40 MG TAB PO SCH ×2 (07:59→21:35)
[2017-06-17] MEDS: LISINOPRIL 5 MG TAB PO SCH (08:00)
[2017-06-17] MEDS: RANITIDINE HCL 150 MG TAB PO SCH ×2 (08:00→21:34)
[2017-06-17] MEDS: INSULIN ASPART 100 UNITS/ML 3 ML PEN SC SCH ×4 (08:18→21:33)
[2017-06-17] MEDS ORDERED: INSULIN GLARGINE SOLOSTAR 100 UNITS/ML 3 ML PEN SC SCH (09:00)
[2017-06-17] MEDS: INSULIN GLARGINE SOLOSTAR 100 UNITS/ML 3 ML PEN SC SCH ×2 (09:00→21:38)
[2017-06-17] MEDS: ENOXAPARIN 40 MG/0.4 ML SYR SQ SCH (09:02)
--- NOTE | 2017-06-17 10:13 | CARDIOLOGY PROGRESS NOTE ---
DATE: 06/17/2017 DATE: 06/17/2017 FOLLOW-UP VISIT SUBJECTIVE: The patient is a 71-year-old with a history of obesity, diabetes, hypertension and severe GERD. She was admitted with atypical chest pain. Her cardiac markers have been negative and her EKG shows no acute changes. She had been doing well; however around 8:00 a.m. this morning she had 2 brief runs of PAT which were asymptomatic. The patient thinks that she was sleeping at the time. She had been scheduled for a dobutamine stress echocardiogram; however, there is some concern that using dobutamine may cause her to have more arrhythmias. She cannot exercise on a treadmill. I therefore switched the stress test to a pharmacologic nuclear stress test. I will start her on metoprolol 12.5 mg b.i.d. If she has to have the stress test tomorrow, then we will perform a nocturnal pulse oximeter tonight to screen her for sleep apnea. OBJECTIVE: GENERAL: She is alert and oriented in no acute distress. VITAL SIGNS: Blood pressure 113/75, pulse is regular at 82 . She is in a sinus mechanism. She is afebrile. HEAD, EYES, EARS, NOSE, AND THROAT: She is normocephalic. Pupils are equal and reactive to light. Extraocular muscles are intact bilaterally. NECK: The neck veins are flat. Carotids have good upstrokes bilaterally without bruits. Thyroid is nonpalpable. RESPIRATORY: Breath sounds equal bilaterally and clear to auscultation. CARDIOVASCULAR: Heart has a regular rhythm. Normal S1, S2. No S3, S4. No cardiac rubs or murmurs. GASTROINTESTINAL: Abdomen is soft, nontender without organomegaly. EXTREMITIES: Free of edema, digit clubbing, or cyanosis. NEUROLOGIC: Grossly intact. SKIN: Warm to touch. LYMPH NODES: Negative to palpation. LABORATORY DATA: Hemoglobin is 11.1. Potassium is 3.7, creatinine 0.6. IMPRESSION: 1. Atypical chest pain. 2. History of gastroesophageal reflux disease. 3. Diabetes mellitus. 4. Hypertension. 5. Anxiety/depression. 6. Paroxysmal atrial tachycardia. RECOMMENDATIONS: As outlined above, the patient will be started on low dose beta rachid today. We switched her stress test to pharmacologic nuclear stress test. She will also have a nocturnal pulse oximeter to screen her for sleep apnea.
[2017-06-17] MEDS ORDERED: METOPROLOL TARTRATE 25 MG TAB PO ONE (10:15)
[2017-06-17] MEDS ORDERED: NURSING VERBAL MED ORDER ONE (10:45)
--- NOTE | 2017-06-17 10:52 | Progress Note ---
Subjective Date of Service: Jun 17, 2017. Subjective Pt evaluation today including: conversation w/ patient, physical exam, lab review, review of studies, review of inpatient medication list Saw/examined the patient in room 275 as per tech and nursing, there are concerns about atrial tachycardia on monitor for a few seconds - patient had been asymptomatic throughout this episode No chest pain or palpitations Problem List Medical Problems: (1) Allergic reaction Status: Acute (2) Allergic reaction caused by a drug Status: Acute (3) Central chest pain Status: Acute (4) Gallstone Status: Acute (5) Right upper quadrant abdominal pain Status: Acute (6) Urticaria Status: Acute Review of Systems Respiratory: No cough, No sputum, No shortness of breath Cardiac: No chest pain, No edema, No palpitations Abdomen: No pain, No nausea, No vomiting, No diarrhea Heme: No abnormal bleeding/bruising Medications Current Inpatient Medications Medications (Trade) Dose Ordered Sig/Christina Route Start Time Stop Time Status Last Admin Dose Admin Acetaminophen (Tylenol Tab) 650 mg Q4H PRN PO 06/16/17 06:45 07/16/17 06:44 Nitroglycerin (Nitrostat Tab) 0.4 mg UD PRN SL 06/16/17 06:45 07/16/17 06:44 Insulin Aspart (novoLOG ASPART) SLIDING SCALE If C... ACHS SC 06/16/17 11:00 07/16/17 10:59 06/16/17 20:40 3 UNITS Glucose (Glucose 40% Gel) 15-30 GRAMS 15 GRAMS... UD PRN PO 06/16/17 07:15 07/16/17 07:14 Glucose (Glucose Chew Tab) 4-8 Tablets 4 Tabl... UD PRN PO 06/16/17 07:15 07/16/17 07:14 Dextrose (Dextrose 50% 50ML Syringe) 25-50ML OF 50% DW IV FOR... UD PRN IV 06/16/17 07:15 07/16/17 07:14 Glucagon (Glucagon Inj) 1 mg UD PRN SQ 06/16/17 07:15 07/16/17 07:14 Miscellaneous (Iv Fluids Completed) 1 ea PRN PRN N/A 06/16/17 08:30 06/16/18 08:29 Pantoprazole Sodium (Protonix Tab) 40 mg BID PO 06/16/17 09:00 07/16/17 08:59 06/16/17 20:42 40 MG Aspirin (Ecotrin Tab) 81 mg QAM PO 06/16/17 09:00 07/16/17 08:59 06/16/17 10:35 81 MG Lisinopril (Zestril Tab) 5 mg DAILY PO 06/16/17 09:00 07/16/17 08:59 06/16/17 10:37 5 MG Ranitidine HCl (zANTac TAB) 150 mg BID PO 06/16/17 09:00 07/16/17 08:59 06/16/17 20:42 150 MG Bupropion HCl (Wellbutrin-Xl Tab) 300 mg QAM PO 06/16/17 09:00 07/16/17 08:59 06/16/17 10:36 300 MG Enoxaparin Sodium (Lovenox Inj) 40 mg QAM SQ 06/17/17 09:00 07/17/17 08:59 06/17/17 09:02 40 MG Insulin Glargine (Lantus Solostar Pen) 10 units BID SC 06/16/17 21:00 07/16/17 08:59 06/16/17 20:41 10 UNITS Metoprolol Tartrate (Lopressor Tab) 12.5 mg BID PO 06/17/17 21:00 07/17/17 20:59 Objective Vital Signs Date Time Temp Pulse Resp B/P (MAP) Pulse Ox O2 Delivery O2 Flow Rate FiO2 06/17/17 10:23 77 138/81 (100) 06/17/17 07:35 Room Air 06/17/17 07:31 36.9 82 16 113/75 (88) 94 Room Air 06/17/17 04:00 Room Air 06/17/17 03:41 36.8 87 16 101/63 (76) 94 06/17/17 00:00 Room Air 06/16/17 23:59 36.7 87 19 129/81 (97) 96 Room Air 06/16/17 20:00 Room Air 06/16/17 19:08 36.7 92 18 118/77 (91) 95 Room Air 06/16/17 16:45 98 Room Air 06/16/17 15:08 36.7 86 18 114/72 (86) 95 Room Air 06/16/17 12:00 96 Room Air 06/16/17 11:04 82 18 127/75 (92) 96 Room Air Physical Exam General Appearance: no apparent distress, + obese Respiratory/Chest: lungs clear, normal breath sounds, no respiratory distress, no accessory muscle use Cardiovascular: regular rate, rhythm, no edema, no murmur Extremities: normal inspection, no pedal edema Neurologic/Psychiatric: no motor/sensory deficits, alert, normal mood/affect Laboratory Results Last 24 Hours Test 06/16/17 14:36 06/16/17 17:38 06/16/17 20:21 06/16/17 22:30 Total Creatine Kinase 29 U/L 31 U/L Creatine Kinase MB 0.5 ng/ml 0.6 ng/ml Creatine Kinase MB Ratio 1.7 1.9 Troponin I < 0.015 ng/ml < 0.015 ng/ml Bedside Glucose 171 mg/dl 245 mg/dl Test 06/17/17 06:56 White Blood Count 7.49 K/uL Red Blood Count 3.76 M/uL Hemoglobin 11.1 g/dL Hematocrit 32.1 % Mean Corpuscular Volume 85.4 fL Mean Corpuscular Hemoglobin 29.5 pg Mean Corpuscular Hemoglobin Concent 34.6 g/dl RDW Standard Deviation 40.9 fL RDW Coefficient of Variation 13.2 % Platelet Count 292 K/uL Mean Platelet Volume 9.3 fL Sodium Level 141 mmol/L Potassium Level 3.7 mmol/L Chloride Level 106 mmol/L Carbon Dioxide Level 29 mmol/L Anion Gap 6.0 mmol/L Blood Urea Nitrogen 12 mg/dl Creatinine 0.60 mg/dl Est Creatinine Clear Calc Drug Dose 77.2 ml/min Estimated GFR () 107.8 Estimated GFR (Non- 93.0 BUN/Creatinine Ratio 20.6 Random Glucose 134 mg/dl Calcium Level 8.8 mg/dl Triglycerides Level 94 mg/dl Cholesterol Level 138 mg/dl HDL Cholesterol 59 mg/dl LDL Cholesterol, Calculated 60 mg/dl VLDL Cholesterol, Calculated 19 mg/dl Cholesterol/HDL Ratio 2.3 Assessment and Plan This is a 71 year old female with a PMH of depression/anxiety, uncontrolled DM2 , HTN, GERD presents with chest pain Chest Pain r/o ACS 06/17 appreciate cardiology input there seems to be an atrial tachycardia/arrhythmia noted on tele started on low dose b-rachid switched to possible nuclear stress test, pending 06/16 the pain seems more like GERD/reflux pain will add Protonix BID and continue Zantac BID dosing initial set of cardiac enzymes negative, EKG with no ST-T wave changes she does have risk factors though, including uncontrolled DM2 and hypertension will manage risk factors, improved blood pressure control, improved glycemic control; check lipid panel in AM trend cardiac enzymes check echo monitor in tele continue aspirin, nitro paste for now cardiology consultation to assess risk: inpatient vs. outpatient stress GERD pain is likely reflux related pain she takes Prilosec 20mg and Zantac 150mg BID I'll change to Protonix 40mg BID + Zantac - will need this on discharge Uncontrolled DM2 06/17 ha1c = 9.7% discussed different options for this uncontrolled DM2 Tells me she does not tolerate metformin and misses doses discussed insulin, but she would like to try diet, exercise and PO meds for now will likely switch to Januvia and glimepiride on discharge 06/16 Ha1c in January 2017 = 8.6% she states that she is not having success with her diabetes due to seasonal depression currently takes metformin and glimepiride, which we will hold insulin sliding scale, Lantus 5 units BID check Ha1c R knee pain was to see PCP for a chronic R knee pain x-ray shows degenerative changes HTN continue Lisinopril, BP well controlled right now DVT ppx Lovenox (does have a hx. of DVT in the past) FULL CODE
--- NOTE | 2017-06-17 12:50 | ECHOCARDIOGRAM REPORT ---
*NOTICE TO RECEIVING LIBERTARIAN AGENCY This information is strictly Confidential and protected under [place] law. [place] law prohibits you from making any further disclosure of this information unless further disclosure is expressly permitted by the written consent of the person to whom it pertains or is authorized by law. A general authorization for the release of medical or other information is not sufficient for this purpose. Hospital accepts no responsibility if the information is made available to any other person, INCLUDING THE PATIENT. Interpretation Summary * Name: MARBIN CHAO Study Date: 06/17/2017 09:47 AM * Patient Location: [facility]\S\[id number] HR: 83 * : 1945 (M/d/yyyy) Gender: Female Height: 55 in * Age: 71 yrs Ethnicity: [place] Weight: 193 lb * Ordering Physician: Cindy Bardales * Referring Physician: Self, Referred * Performed By: Zach Gibbs RCS * * Reason For Study: Chest pain * BSA: 1.7 m2 * -- Conclusions -- * The left ventricle is normal in size. * There is mild concentric left ventricular hypertrophy. * Ejection Fraction = 55-60%. * Grade I diastolic dysfunction, (abnormal relaxation pattern). * There is mild mitral regurgitation. Procedure Details * Left Ventricle The left ventricle is normal in size. There is mild concentric left ventricular hypertrophy. Ejection Fraction = 55-60%. Left ventricular systolic function is normal. * Right Ventricle The right ventricle is normal size. The right ventricular systolic function is normal. * Atria The left atrial size is normal. Right atrial size is normal. The interatrial septum is intact with no evidence for an atrial septal defect. * Mitral Valve The mitral valve anatomy is normal. There is mild mitral regurgitation. * Tricuspid Valve The tricuspid valve is normal in structure and function. * Aortic Valve Aortic valve sclerosis mild, without significant aortic valvular stenosis. * Great Vessels The aortic root and proximal ascending aorta are normal sized. * Pericardium/Pleural There is no pericardial effusion. * Left Ventricular Diastolic Function Grade I diastolic dysfunction, (abnormal relaxation pattern). * * MMode 2D Measurements and Calculations * IVSd 1.0 cm * * LVIDd 4.6 cm * LVIDs 3.1 cm * LVPWd 0.96 cm * * IVS/LVPW 1.0 * FS 33.0 % * EDV(Teich) 97.2 ml * ESV(Teich) 37.3 ml * EF(Teich) 61.6 % * * EDV(cubed) 97.2 ml * ESV(cubed) 29.2 ml * EF(cubed) 70.0 % * * LV mass(C)d 155.3 grams * LV mass(C)dI 89.9 grams/m\S\2 * * SV(Teich) 59.9 ml * SI(Teich) 34.7 ml/m\S\2 * SV(cubed) 68.0 ml * SI(cubed) 39.4 ml/m\S\2 * * Ao root diam 2.3 cm * Ao root area 4.1 cm\S\2 * * LVOT diam 1.9 cm * LVOT area 2.9 cm\S\2 * * LVAd ap4 25.0 cm\S\2 * LVLd ap4 7.8 cm * EDV(MOD-sp4) 66.6 ml * EDV(sp4-el) 67.8 ml * LVAs ap4 15.1 cm\S\2 * LVLs ap4 6.2 cm * ESV(MOD-sp4) 32.6 ml * ESV(sp4-el) 31.2 ml * EF(MOD-sp4) 51.0 % * EF(sp4-el) 54.0 % * * LVAd ap2 26.2 cm\S\2 * LVLd ap2 7.6 cm * EDV(MOD-sp2) 76.9 ml * EDV(sp2-el) 76.3 ml * LVAs ap2 14.9 cm\S\2 * LVLs ap2 6.4 cm * ESV(MOD-sp2) 29.8 ml * ESV(sp2-el) 29.5 ml * EF(MOD-sp2) 61.3 % * EF(sp2-el) 61.4 % * * LVLd %diff -2.72 % * EDV(MOD-bp) 73.2 ml * LVLs %diff 2.5 % * ESV(MOD-bp) 31.4 ml * EF(MOD-bp) 57.1 % * * SV(MOD-sp4) 34.0 ml * SI(MOD-sp4) 19.7 ml/m\S\2 * * SV(MOD-sp2) 47.1 ml * SI(MOD-sp2) 27.3 ml/m\S\2 * * SV(MOD-bp) 41.8 ml * SI(MOD-bp) 24.2 ml/m\S\2 * * SV(sp4-el) 36.6 ml * SI(sp4-el) 21.2 ml/m\S\2 * * SV(sp2-el) 46.9 ml * SI(sp2-el) 27.2 ml/m\S\2 * * * Doppler Measurements and Calculations * MV E max vance 79.5 cm/sec * MV A max vance 108.2 cm/sec * * MV E/A 0.74 * * MV dec time 0.21 sec * * Ao V2 max 192.1 cm/sec * Ao max PG 14.8 mmHg * Ao max PG (full) 12.0 mmHg * DIAMOND(V,A) 1.2 cm\S\2 * DIAMOND(V,D) 1.2 cm\S\2 * * LV V1 max PG 2.8 mmHg * * LV V1 max 82.9 cm/sec * * TR max vance 211.8 cm/sec * * *
[2017-06-17] MEDS ORDERED: REGADENOSON 0.4 MG/5 ML SYR ONE (14:21)
[2017-06-17] MEDS ORDERED: LORAZEPAM 0.5 MG TAB PO ONE (20:30)
[2017-06-17] MEDS: METOPROLOL TARTRATE 25 MG TAB PO SCH (21:36)
[2017-06-17] MEDS ORDERED: LORAZEPAM 0.5 MG TAB ONE (22:37)
[2017-06-18 00:27] VITALS: BP 130/88; PULSE 74; TEMP 36.8; O2SAT 96
[2017-06-18 05:39] VITALS: BP 130/84; PULSE 83; TEMP 36.8; O2SAT 93
[2017-06-18 06:16] LABS: HEMATOCRIT 35.5 % (37-47); MEAN CELL VOLUME 86.2 fL (80-100); MEAN CORPUSCULAR HEMOGLOBIN 28.2 pg (25-34); MEAN CORPUSCULAR HGB CONC 32.7 g/dl (32-36); MEAN PLATELET VOLUME 9.4 fL (7.4-10.4); PLATELET COUNT 337 K/uL (130-400); RED BLOOD COUNT 4.12 M/uL (4.2-5.4); WHITE BLOOD COUNT 7.27 K/uL (4.8-10.8)
[2017-06-18 06:52] LABS: CALCIUM 8.9 mg/dl (8.5-10.1); CREATININE 0.59 mg/dl (0.60-1.20); POTASSIUM 3.7 mmol/L (3.5-5.1)
[2017-06-18 07:32] VITALS: BP 118/83; PULSE 78; TEMP 36.6; O2SAT 96
[2017-06-18] MEDS: RANITIDINE HCL 150 MG TAB PO SCH (10:30)
[2017-06-18] MEDS: BuPROPion XL 300 MG TABCR PO SCH (10:30)
[2017-06-18] MEDS: METOPROLOL TARTRATE 25 MG TAB PO SCH (10:30)
[2017-06-18] MEDS: LISINOPRIL 5 MG TAB PO SCH (10:30)
[2017-06-18] MEDS: PANTOprazole SOD 40 MG TAB PO SCH (10:31)
[2017-06-18] MEDS: ASPIRIN 81 MG ECTAB PO SCH (10:32)
[2017-06-18] MEDS: ENOXAPARIN 40 MG/0.4 ML SYR SQ SCH (10:33)
[2017-06-18] MEDS: INSULIN GLARGINE SOLOSTAR 100 UNITS/ML 3 ML PEN SC SCH (10:35)
[2017-06-18] MEDS: INSULIN ASPART 100 UNITS/ML 3 ML PEN SC SCH ×2 (10:36→13:37)
--- NOTE | 2017-06-18 10:46 | MYOCARDIAL PERFUSION SCAN ---
[facility] CARDIOLITE STRESS TEST HISTORY OF PRESENT ILLNESS: This is a 71-year-old female with a long history of GERD who presented with atypical chest pain. TECHNIQUE: For the stress portion of the study, the patient received 23.5 mCi of technetium-99m sestamibi intravenously at 8:40 a.m. on 06/18/2017. Thirty minutes following the injection, imaging of the heart performed in multiple projections. For the rest portion of the study, the patient received 24 mCi of intravenous technetium-99m sestamibi at 3:12 p.m. on 06/17/2017. One hour following the injection, imaging of the heart was performed in the same projections. When reviewing the raw images, there is no evidence of attenuation artifact or lung uptake. When comparing the rest to stress sestamibi scans, there is normal perfusion throughout the myocardial segments. Gated analysis reveals normal left ventricular fraction. Qualitatively, the estimated left ventricular ejection fraction is above 60%. SUMMARY: Overall, this pharmacologic nuclear stress test is negative for ischemia and there is a low probability for hemodynamically significant coronary artery disease.
--- NOTE | 2017-06-18 10:49 | PROGRESS NOTE ---
DATE: 06/18/2017 SUBJECTIVE: The patient is a 71-year-old with history of obesity, diabetes, hypertension, and severe GERD. She was admitted with chest pain. Today, she underwent a pharmacologic nuclear stress test that was negative for ischemia. Yesterday in the morning, she had 2 brief runs of PAT. Review of her 24-hour telemetry after the start of metoprolol indicates no additional arrhythmias. She also had a pulse ox nocturnally last night that failed to show any significant desaturations consistent with sleep apnea. She has no additional complaints today. OBJECTIVE: GENERAL: She is alert and oriented, in no acute distress. VITAL SIGNS: Blood pressure is 118/80. Pulse is regular at 78, sinus mechanism. HEENT: She is normocephalic. Pupils are equal and reactive to light. Extraocular muscles are intact bilaterally. NECK: The neck veins are flat. Carotids have good upstrokes bilaterally without bruits. Thyroid is nonpalpable. RESPIRATORY: Breath sounds equal bilaterally and clear to auscultation. CARDIOVASCULAR: Heart has regular rhythm. Normal S1, S2. No S3, S4. No cardiac rubs or murmurs. GASTROINTESTINAL: Abdomen is soft, nontender without organomegaly. EXTREMITIES: Free of edema, digit clubbing, or cyanosis. NEUROLOGIC: Grossly intact. SKIN: Warm to touch. LYMPH NODES: Negative to palpation. LABORATORY DATA: Potassium is 3.7. IMPRESSION: 1. Atypical chest pain. 2. Gastroesophageal reflux disease. 3. Diabetes. 4. Hypertension. 5. Anxiety/depression. 6. Paroxysmal atrial tachycardia. RECOMMENDATIONS: As mentioned above, the patient's pharmacologic nuclear stress test was negative. No additional cardiac testing is indicated. I believe the patient can be discharged home with outpatient followup with her primary care physician. I would continue her current medications, especially the metoprolol which was started here in the hospital for her PAT.
[2017-06-18 11:22] VITALS: BP 132/81; PULSE 80; TEMP 36.4; O2SAT 94
--- NOTE | 2017-06-18 13:13 | Progress Note ---
Subjective Date of Service: Jun 18, 2017. Subjective Pt evaluation today including: conversation w/ patient, physical exam, lab review, review of studies, review of inpatient medication list Saw/examined the patient in room 275-1 She had her stress test this morning She feels fine, no chest pain/shortness of breath +depression/anxiety around this time of year due to her passing away in the fall about 16 years prior Problem List Medical Problems: (1) Allergic reaction Status: Acute (2) Allergic reaction caused by a drug Status: Acute (3) Central chest pain Status: Acute (4) Gallstone Status: Acute (5) Right upper quadrant abdominal pain Status: Acute (6) Urticaria Status: Acute Review of Systems Constitutional: No fever, No chills Respiratory: No shortness of breath Cardiac: No chest pain Abdomen: No pain, No nausea, No vomiting, No diarrhea Psychiatric: + anxiety Medications Current Inpatient Medications Medications (Trade) Dose Ordered Sig/Christina Route Start Time Stop Time Status Last Admin Dose Admin Acetaminophen (Tylenol Tab) 650 mg Q4H PRN PO 06/16/17 06:45 07/16/17 06:44 Nitroglycerin (Nitrostat Tab) 0.4 mg UD PRN SL 06/16/17 06:45 07/16/17 06:44 Insulin Aspart (novoLOG ASPART) SLIDING SCALE If C... ACHS SC 06/16/17 11:00 07/16/17 10:59 06/18/17 10:36 5 UNITS Glucose (Glucose 40% Gel) 15-30 GRAMS 15 GRAMS... UD PRN PO 06/16/17 07:15 07/16/17 07:14 Glucose (Glucose Chew Tab) 4-8 Tablets 4 Tabl... UD PRN PO 06/16/17 07:15 07/16/17 07:14 Dextrose (Dextrose 50% 50ML Syringe) 25-50ML OF 50% DW IV FOR... UD PRN IV 06/16/17 07:15 07/16/17 07:14 Glucagon (Glucagon Inj) 1 mg UD PRN SQ 06/16/17 07:15 07/16/17 07:14 Miscellaneous (Iv Fluids Completed) 1 ea PRN PRN N/A 06/16/17 08:30 06/16/18 08:29 Pantoprazole Sodium (Protonix Tab) 40 mg BID PO 06/16/17 09:00 07/16/17 08:59 06/18/17 10:31 40 MG Aspirin (Ecotrin Tab) 81 mg QAM PO 06/16/17 09:00 07/16/17 08:59 06/18/17 10:32 81 MG Lisinopril (Zestril Tab) 5 mg DAILY PO 06/16/17 09:00 07/16/17 08:59 06/18/17 10:30 5 MG Ranitidine HCl (zANTac TAB) 150 mg BID PO 06/16/17 09:00 07/16/17 08:59 06/18/17 10:30 150 MG Bupropion HCl (Wellbutrin-Xl Tab) 300 mg QAM PO 06/16/17 09:00 07/16/17 08:59 06/18/17 10:30 300 MG Enoxaparin Sodium (Lovenox Inj) 40 mg QAM SQ 06/17/17 09:00 07/17/17 08:59 06/18/17 10:33 40 MG Insulin Glargine (Lantus Solostar Pen) 10 units BID SC 06/16/17 21:00 07/16/17 08:59 06/18/17 10:35 10 UNITS Metoprolol Tartrate (Lopressor Tab) 12.5 mg BID PO 06/17/17 21:00 07/17/17 20:59 06/18/17 10:30 12.5 MG Objective Vital Signs Date Time Temp Pulse Resp B/P (MAP) Pulse Ox O2 Delivery O2 Flow Rate FiO2 06/18/17 11:22 36.4 80 18 132/81 (98) 94 Room Air 06/18/17 07:32 36.6 78 18 118/83 (95) 96 Room Air 06/18/17 05:39 36.8 83 18 130/84 (99) 93 Room Air 06/18/17 04:00 Room Air 06/18/17 00:27 36.8 74 18 130/88 (102) 96 Room Air 06/18/17 00:00 Room Air 06/17/17 20:00 97 Room Air 06/17/17 19:54 36.7 80 18 118/74 (89) 97 Room Air 06/17/17 16:00 94 Room Air Physical Exam General Appearance: no apparent distress, + obese Respiratory/Chest: chest non-tender, lungs clear, normal breath sounds, no respiratory distress, no accessory muscle use Cardiovascular: regular rate, rhythm, no edema, no murmur Abdomen: normal bowel sounds, non tender, soft Extremities: normal inspection, no pedal edema Neurologic/Psychiatric: no motor/sensory deficits, alert, + depressed affect ( tearful, anxious) Laboratory Results Last 24 Hours Test 06/17/17 16:19 06/17/17 20:18 06/18/17 05:50 06/18/17 10:04 Bedside Glucose 220 mg/dl 120 mg/dl 206 mg/dl White Blood Count 7.27 K/uL Red Blood Count 4.12 M/uL Hemoglobin 11.6 g/dL Hematocrit 35.5 % Mean Corpuscular Volume 86.2 fL Mean Corpuscular Hemoglobin 28.2 pg Mean Corpuscular Hemoglobin Concent 32.7 g/dl RDW Standard Deviation 41.8 fL RDW Coefficient of Variation 13.2 % Platelet Count 337 K/uL Mean Platelet Volume 9.4 fL Sodium Level 139 mmol/L Potassium Level 3.7 mmol/L Chloride Level 105 mmol/L Carbon Dioxide Level 29 mmol/L Anion Gap 5.0 mmol/L Blood Urea Nitrogen 13 mg/dl Creatinine 0.59 mg/dl Est Creatinine Clear Calc Drug Dose 78.5 ml/min Estimated GFR () 108.4 Estimated GFR (Non- 93.5 BUN/Creatinine Ratio 22.0 Random Glucose 121 mg/dl Calcium Level 8.9 mg/dl Magnesium Level 2.0 mg/dl Test 06/18/17 11:33 Bedside Glucose 282 mg/dl Assessment and Plan This is a 71 year old female with a PMH of depression/anxiety, uncontrolled DM2 , HTN, GERD presents with chest pain Chest Pain r/o ACS 06/18 stress test is negative chest pain likely secondary to GERD will continue metoprolol will give some Xanax tablets PRN for anxiety, she has seasonal depression, and difficulty coping around this time due to her 's passing will d/c with Protonix and Zantac BID will stop metformin and d/c on Januvia and glimepiride, repeat Ha1c in 3 months 06/17 appreciate cardiology input there seems to be an atrial tachycardia/arrhythmia noted on tele started on low dose b-rachid switched to possible nuclear stress test, pending 06/16 the pain seems more like GERD/reflux pain will add Protonix BID and continue Zantac BID dosing initial set of cardiac enzymes negative, EKG with no ST-T wave changes she does have risk factors though, including uncontrolled DM2 and hypertension will manage risk factors, improved blood pressure control, improved glycemic control; check lipid panel in AM trend cardiac enzymes check echo monitor in tele continue aspirin, nitro paste for now cardiology consultation to assess risk: inpatient vs. outpatient stress Paroxysmal Atrial Tachyarrhythmia started on b-rachid she is back to NSR currently GERD pain is likely reflux related pain she takes Prilosec 20mg and Zantac 150mg BID I'll change to Protonix 40mg BID + Zantac - will need this on discharge Uncontrolled DM2 06/17 ha1c = 9.7% discussed different options for this uncontrolled DM2 Tells me she does not tolerate metformin and misses doses discussed insulin, but she would like to try diet, exercise and PO meds for now will likely switch to Januvia and glimepiride on discharge 06/16 Ha1c in January 2017 = 8.6% she states that she is not having success with her diabetes due to seasonal depression currently takes metformin and glimepiride, which we will hold insulin sliding scale, Lantus 5 units BID check Ha1c R knee pain was to see PCP for a chronic R knee pain x-ray shows degenerative changes HTN continue Lisinopril, BP well controlled right now DVT ppx Lovenox (does have a hx. of DVT in the past) FULL CODE
[2017-06-18] MEDS ORDERED: ALPR-385 PO (13:18)
[2017-06-18] MEDS ORDERED: WLLXL300 PO (13:18)
[2017-06-18] MEDS ORDERED: OMEP40CA41 PO (13:18)
[2017-06-18] MEDS ORDERED: LPR25 PO (13:18)
[2017-06-18] MEDS ORDERED: SITA1TAB27 PO (13:18)
--- NOTE | 2017-06-18 13:23 | Discharge Instructions ---
Discharge Instructions Date of Service Jun 18, 2017. Admission Reason for Admission: Chest Pain Discharge Discharge Diagnosis / Problem: uncontrolled reflux, uncontrolled diabetes, anxiety/depression Discharge Goals Goal(s): Decrease discomfort, Improve function, Diagnostic testing, Therapeutic intervention Activity Recommendations Activity Limitations: resume your previous activity . Instructions / Follow-Up Instructions / Follow-Up Please follow-up with Dr. Ojeda on June 22 at 2:55PM * You will be on Januvia and Glimepiride - take these as prescribed and your Ha1c should be rechecked in 3 months * Please improve your diet by decreasing the amount of carbs you eat * Your dose of Omeprazole (Prilosec) is changed to 40mg twice a day to control your reflux - Keep taking Zantac twice a day as well * You are started on metoprolol (Lopressor) to control your heart rate * You will be prescribed Xanax - this is for anxiety and only take this as needed Current Hospital Diet Patient's current hospital diet: Diabetes Type 2 Diet, AHA Diet (Heart Healthy) Discharge Diet Recommended Diet: Diabetes Type 2 Diet Pending Studies Studies pending at discharge: no Laboratory Results Hemoglobin A1c Test 06/16/17 09:12 Range/Units Estimated Average Glucose 232 mg/dl Hemoglobin A1c 9.7 H 4.5-5.6 % Lipid Panel Test 06/17/17 06:56 Range/Units Triglycerides Level 94 0-150 mg/dl Cholesterol Level 138 0-200 mg/dl HDL Cholesterol 59 mg/dl Cholesterol/HDL Ratio 2.3 LDL Cholesterol, Calculated 60 mg/dl Medical Emergencies . Who to Call and When: Medical Emergencies: If at any time you feel your situation is an emergency, please call 911 immediately. . Non-Emergent Contact Non-Emergency issues call your: Primary Care Provider . . "Provider Documentation" section prepared by Cindy Bardales. . VTE Core Measure Inpt VTE Proph given/why not?: Enoxaparin (Lovenox) [place] Drug Monitoring Program Search Results: patient reviewed within database, no issues identified
--- NOTE | 2017-06-18 13:25 | Discharge Summary ---
Discharge Summary Date of Service Jun 18, 2017. Discharge Summary Admission Date: Jun 16, 2017 at 06:41 Discharge Date: Jun 18, 2017 Discharge Disposition: Home Principal Diagnosis: Uncontrolled GERD Uncontrolled DM2 Paroxysmal Atrial Tachycardia Depression/Anxiety Procedures: Stress Test - negative Medication Reconciliation New Medications: Alprazolam (Xanax) 1 Mg Tab 1 TAB PO BID PRN for Anxiety for 10 Days, #20 TAB Sitagliptin (Januvia) 100 Mg Tab 1 TAB PO DAILY for 30 Days, #30 TAB 5 Refills Bupropion HCl (Bupropion HCl Xl) 300 Mg Tabcr 300 MG PO QAM for 30 Days, #30 TABS Metoprolol Tartrate (Lopressor) 25 Mg Tab 12.5 MG PO BID for 30 Days, #30 TAB Changed Medications: Omeprazole (Prilosec) 40 Mg Cap 40 MG PO BID for 30 Days, #60 CAP (Changed from: Omeprazole (Prilosec) 20 Mg Capcr 20 Mg PO QAM Ref 0) Continued Medications: Aspirin (Aspirin 81) 81 Mg Tab 81 MG PO QAM Cholecalciferol (Vitamin D3 Adult Gummies) 1,000 Unit Chw 1000 UNIT PO DAILY Desloratadine (Desloratadine Odt) 5 Mg Tab 5 MG PO QAM Diphenhydramine Hcl (Benadryl) 25 Mg Cap 50 MG PO Q6H PRN for ALLERGIC REACTION, CAP Glimepiride (Glimepiride) 2 Mg Tab 4 MG PO QAM, 3 Refills Ibuprofen Tab (Advil) 200 Mg Tab 400-600 MG PO UD PRN for arthritis, TAB Lisinopril (Lisinopril) 5 Mg Tab 5 MG PO DAILY Ranitidine Hcl (Zantac) 150 Mg Tab 150 MG PO BID, #10 TAB Discontinued Medications: Empagliflozin (Jardiance) 10 Mg Tab 10 MG PO QAM Metformin Hcl Er (Glucophage Er) 500 Mg Tab 500 MG PO TID, 3 Refills take 500mg prior breakfast, lunch and dinner Admission Information HPI (per Admitting provider): This is a 71 year old female with a PMH of depression/anxiety, uncontrolled DM2 , HTN, GERD presents with chest pain; she states that she was woken up by this chest pain; she stated it felt like acidic burning in her substernal/epigastric region; she had a bad taste in her mouth as well - she took four aspirin and cecilia-seltzer but did not feel better. She called the EMS - because her blood pressure was in the 180s systolically; she was given a nitro spray en route and was noted to have some respiratory distress on the way here. Once she presented here, she was given a nitro patch and felt better. She states that she has been struggling with anxiety/depression and this is the time of year that her about 16 years prior and that has been bothering her. She has also had trouble managing her diabetes; her last Ha1c was 8.6% and she knows it is probably worse now. She takes Prilosec 20mg daily as well as Zantac for her GERD. I saw her in room 277; she denied symptoms currently. Denies shortness of breath/chest pain at this time; no palpitations; no nausea/ vomiting/diarrhea, no fevers/chills +pain at the R knee, which is chronic Physical Exam (per Admitting): General Appearance: no apparent distress, + obese Head: normocephalic, atraumatic Eyes: normal inspection, EOMI ENT: normal ENT inspection, hearing grossly normal Neck: supple, no JVD Respiratory/Chest: chest non-tender, lungs clear, normal breath sounds, no respiratory distress, no accessory muscle use Cardiovascular: regular rate, rhythm, no edema, no gallop, no JVD, no murmur , normal peripheral pulses Abdomen/GI: normal bowel sounds, non tender, soft Back: no CVA tenderness, no muscle spasm Extremities/Musculoskelatal: normal inspection, no calf tenderness, normal capillary refill, no pedal edema, normal range of motion, + pertinent finding ( tender R knee) 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, no motor/sensory deficits, alert , normal mood/affect, oriented x 3 Skin: normal color Lymphatic: no adenopathy Hospital Course This is a 71 year old female with a PMH of depression/anxiety, uncontrolled DM2 , HTN, GERD presents with chest pain Chest Pain r/o ACS 06/18 stress test is negative chest pain likely secondary to GERD will continue metoprolol will give some Xanax tablets PRN for anxiety, she has seasonal depression, and difficulty coping around this time due to her 's passing will d/c with Protonix and Zantac BID will stop metformin and d/c on Januvia and glimepiride, repeat Ha1c in 3 months 06/17 appreciate cardiology input there seems to be an atrial tachycardia/arrhythmia noted on tele started on low dose b-rachid switched to possible nuclear stress test, pending 06/16 the pain seems more like GERD/reflux pain will add Protonix BID and continue Zantac BID dosing initial set of cardiac enzymes negative, EKG with no ST-T wave changes she does have risk factors though, including uncontrolled DM2 and hypertension will manage risk factors, improved blood pressure control, improved glycemic control; check lipid panel in AM trend cardiac enzymes check echo monitor in tele continue aspirin, nitro paste for now cardiology consultation to assess risk: inpatient vs. outpatient stress Paroxysmal Atrial Tachyarrhythmia started on b-rachid she is back to NSR currently GERD pain is likely reflux related pain she takes Prilosec 20mg and Zantac 150mg BID I'll change to Protonix 40mg BID + Zantac - will need this on discharge Uncontrolled DM2 06/17 ha1c = 9.7% discussed different options for this uncontrolled DM2 Tells me she does not tolerate metformin and misses doses discussed insulin, but she would like to try diet, exercise and PO meds for now will likely switch to Januvia and glimepiride on discharge 06/16 Ha1c in January 2017 = 8.6% she states that she is not having success with her diabetes due to seasonal depression currently takes metformin and glimepiride, which we will hold insulin sliding scale, Lantus 5 units BID check Ha1c R knee pain was to see PCP for a chronic R knee pain x-ray shows degenerative changes HTN continue Lisinopril, BP well controlled right now DVT ppx Lovenox (does have a hx. of DVT in the past) FULL CODE Total time spent on discharge = 40 minutes This includes examination of the patient, discharge planning, medication reconciliation, and communication with other providers. Discharge Instructions Please follow-up with Dr. Ojeda on Thursday, June 22 at 2:55PM * You will be on Januvia and Glimepiride - take these as prescribed and your Ha1c should be rechecked in 3 months * Please improve your diet by decreasing the amount of carbs you eat * Your dose of Omeprazole (Prilosec) is changed to 40mg twice a day to control your reflux - Keep taking Zantac twice a day as well * You are started on metoprolol (Lopressor) to control your heart rate * You will be prescribed Xanax - this is for anxiety and only take this as needed
[2017-06-18 14:02] VITALS: BP 132/81; PULSE 80; TEMP 36.4; O2SAT 94
== END 2017-06-18 14:47 | disposition home or self-care (01) ==
LOC: EDBD 05:34 → C.EDB 05:35 → C.MED 06:41 → ENRESERV 07:10 → C.MED 23:40
PROVIDERS: ADMIT Internal Medicine; ATTEND Family Medicine
DX: K21.9 Gastro-esophageal reflux disease without esophagitis (principal); E11.65 Type 2 diabetes mellitus with hyperglycemia; I47.1 Supraventricular tachycardia; I10 Essential (primary) hypertension; J45.909 Unspecified asthma, uncomplicated; G89.29 Other chronic pain; M25.561 Pain in right knee; F41.9 Anxiety disorder, unspecified; F32.9 Major depressive disorder, single episode, unspecified; Z86.718 Personal history of other venous thrombosis and embolism; Z79.84 Long term (current) use of oral hypoglycemic drugs; Z79.82 Long term (current) use of aspirin; Z79.899 Other long term (current) drug therapy

== ENCOUNTER 2018-05-21 08:08 | Emergency (ER) | payer OTHER ==
[~2018-05-21] VITALS: Ht 142.2 cm; Wt 85.0 kg
[~2018-05-21 08:08] MED LIST changes: -BND25 PO; +DIPH25CA5 PO; -EMPA1TAB PO; +LISI-730 PO; +LPR25 PO; -LSN5 PO; -METF500T5 PO; -PRLSR20 PO; -RANI150T3 PO; +SITA1TAB27 PO; -SULF800T23 PO; +WLLXL300 PO
[2018-05-21 08:14] VITALS: TEMP 36.4; Ht 142.2 cm; Wt 85.0 kg
--- NOTE | 2018-05-21 08:27 | EMERGENCY ROOM VISIT NOTE ---
ED Visit Note First contact with patient: 08:25 I have seen and examined this patient with Nadia Torrez and generally agree with the treatment plan as discussed. Problem List Medical Problems: (1) Anxiety Status: Chronic (2) Asthma Status: Resolved (3) Bilateral tubal ligation Status: Resolved (4) Bronchitis Status: Resolved (5) Carpal tunnel syndrome Status: Chronic (6) Deep venous thrombosis of lower extremity Status: Resolved (7) Depression Status: Chronic (8) Gastroesophageal reflux disease Status: Chronic (9) IBS Status: Chronic (10) Incontinence Status: Chronic (11) Rotator cuff surgery Status: Resolved Current/Historical Medications Scheduled Aspirin (Aspirin 81), 81 MG PO QAM Bupropion HCl (Bupropion HCl Xl), 300 MG PO QAM Cholecalciferol (Vitamin D3 Adult Gummies), 1,000 UNIT PO DAILY Desloratadine (Desloratadine Odt), 5 MG PO QAM Glimepiride (Glimepiride), 4 MG PO QAM Lisinopril (Lisinopril), 5 MG PO DAILY Metoprolol Tartrate (Lopressor), 12.5 MG PO BID Sitagliptin (Januvia), 1 TAB PO DAILY Scheduled PRN Diphenhydramine Hcl (Benadryl), 50 MG PO Q6H PRN for ALLERGIC REACTION Ibuprofen Tab (Advil), 400-600 MG PO UD PRN for arthritis Allergies Coded Allergies: Ciprofloxacin (Verified Allergy, Mild, RASH ITCHY, 06/16/17) Latex (Verified Allergy, Unknown, Itchiness and swelling., 06/16/17) Sulfa Antibiotics (Verified Allergy, Unknown, unknown, 06/16/17) Sulfamethoxazole w/Trimethoprim (Verified Allergy, Unknown, urticaria, 09/20) Amoxicillin (Verified Adverse Reaction, Mild, DOES NOT WANT TO TAKE DUE TO YEAST INFECTION, 06/16/17) Codeine (Verified Adverse Reaction, Mild, UPSET UPSET, 06/16/17) Morphine (Verified Adverse Reaction, Unknown, UPSET STOMACH, 06/16/17) Vital Signs Date Time Temp Pulse Resp B/P (MAP) Pulse Ox O2 Delivery O2 Flow Rate FiO2 05/21/18 08:14 36.4 77 18 147/94 97 Room Air Departure Information Referrals Rozick, Aldair S.,M.D. (PCP) Patient Instructions [facility]
[2018-05-21] MEDS ORDERED: ASPIRIN 324 MG CHEW PO STA (08:31)
[2018-05-21 08:45] VITALS: O2SAT 97
[2018-05-21] MEDS ORDERED: NITROGLYCERIN 0.4 MG SL PER TAB CHARGE SL PRN (08:45)
--- NOTE | 2018-05-21 08:54 | DIAGNOSTIC IMAGING REPORT ---
CHEST ONE VIEW PORTABLE CLINICAL HISTORY: 72 years-old Female presenting with chest pain. TECHNIQUE: Portable upright AP view of the chest was obtained. COMPARISON: 06/16/2017. FINDINGS: Cardiomediastinal silhouette normal. Apparent 2.8 cm nodule projects over the left apex. No large effusion or pneumothorax. Degenerative changes of the thoracic spine. Upper abdomen normal. IMPRESSION: 1. Apparent 2.8 cm left lower lung nodule. Further evaluation with chest CT recommended. The report will be called/faxed according to standard departmental protocol. Electronically signed by: Agus Russell M.D. 05/21/2018 8:52 AM Dictated Date/Time: 05/21/2018 8:51 AM
[2018-05-21 08:56] LABS: BASO % 0.5 %; BASO ABS # 0.04 K/uL (0-0.2); EOS % 2.6 %; EOS ABS # 0.22 K/uL (0-0.5); HEMATOCRIT 34.6 % (37-47); HEMOGLOBIN 12.1 g/dL (12.0-16.0); IG# 0.13 K/uL (0.00-0.02); LYMPH % 27.7 %; LYMPH ABS # 2.33 K/uL (1.2-3.4); MEAN CORPUSCULAR HEMOGLOBIN 29.7 pg (25-34); MEAN PLATELET VOLUME 9.4 fL (7.4-10.4); MONO % 6.3 %; MONO ABS # 0.53 K/uL (0.11-0.59); NEUT % 61.4 %; NEUT ABS # 5.15 K/uL (1.4-6.5); PLATELET COUNT 353 K/uL (130-400); RED CELL DISTRIBUTION WIDTH SD 40.4 fL (36.4-46.3)
[2018-05-21 09:05] LABS: PTT PATIENT 24.7 SECONDS (21.0-31.0)
[2018-05-21 09:15] LABS: ALBUMIN 3.4 gm/dl (3.4-5.0); ALKALINE PHOSPHATASE 115 U/L (45-117); ALT/SGPT 18 U/L (12-78); AST/SGOT 12 U/L (15-37); BLOOD UREA NITROGEN 12 mg/dl (7-18); CALCIUM 8.8 mg/dl (8.5-10.1); CARBON DIOXIDE 28 mmol/L (21-32); CKMB < 1.0 ng/ml (0.5-3.6); CREATININE 0.75 mg/dl (0.60-1.20); GLUCOSE 210 mg/dl (70-99); LIPASE 179 U/L (73-393); POTASSIUM 4.4 mmol/L (3.5-5.1); SODIUM 132 mmol/L (136-145); TOTAL PROTEIN 7.6 gm/dl (6.4-8.2)
[2018-05-21] MEDS ORDERED: OPTIRAY 320 IV PRN (09:15)
--- NOTE | 2018-05-21 09:50 | DIAGNOSTIC IMAGING REPORT ---
CT (CHEST) THORAX WITH CLINICAL HISTORY: 72 years-old Female presenting with Chest pain/abnormal chest x-ray/CT recommended. TECHNIQUE: Multidetector CT imaging of the chest was performed without the use of intravenous contrast. IV contrast: 91 mL of Optiray 320. A dose lowering technique was used consistent with the principles of ALARA (as low as reasonably achievable). COMPARISON: Chest x-ray from earlier today and chest CT from 2006. CT DOSE (mGy.cm): The estimated cumulative dose is 484.46 mGy.cm. FINDINGS: [employer]er System Supervisor topogram: Cholecystectomy clips. On soft tissue windows, normal thyroid and thoracic inlet. No axillary, supraclavicular, hilar, or mediastinal lymphadenopathy. Normal aorta. Top normal heart size. Coronary artery calcification. No pericardial or pleural effusion. Hepatic steatosis. Cholecystectomy clips. On lung windows, minimal dependent changes likely atelectasis. The apparent abnormality seen on chest x-ray does not correlate with a finding on CT. Stable benign 4 mm solid fissural nodule in the left lower lobe. No other focal nodule or infiltrate. Airways patent. No pneumothorax. On bone windows, normal osseous structures. IMPRESSION: 1. The apparent abnormality seen on chest x-ray does not correlate with a finding on CT and was therefore artifactual. No suspicious pulmonary nodule. No acute intrathoracic pathology. 2. Hepatic steatosis. Electronically signed by: Agus Russell M.D. 05/21/2018 9:48 AM Dictated Date/Time: 05/21/2018 9:44 AM
[2018-05-21] MEDS ORDERED: ESCI1TAB6 PO (10:05)
[2018-05-21] MEDS ORDERED: OMEP40CA41 PO (10:09)
[2018-05-21] MEDS ORDERED: RANI150T85 PO (10:09)
[2018-05-21] MEDS ORDERED: LIRA18IN INJ (10:09)
[2018-05-21] MEDS ORDERED: LINA1TAB PO (10:09)
--- NOTE | 2018-05-21 11:33 | EMERGENCY ROOM VISIT NOTE ---
History First contact with patient: 08:25 Chief Complaint: CARDIAC ASSESSMENT Stated Complaint: HEAVINESS IN CHEST INTO LEFT SIDE,PAIN IN HEAD Nursing Triage Summary: "I feel like my left breast is too heavy for my chest". She relates that she was sleeping. She thinks that she may have woke up with it. Shortness of breath. Nauseated. History of Present Illness The patient is a 72 year old female who presents to the Emergency Room with complaints of left-sided chest pain under her left breast which started 430 this morning. The patient states that it feels like "her breast is just heavier ". She currently rates it at a 7 out of 10. The patient states yesterday she had some pain in the left shoulder but she does not have that at this time. She also felt that she has some pressure in her head and her left leg felt "heavy". Patient denies any associated breath, cough, fever. Patient denies any abdominal pain. She did not take anything for the pain. The patient denies taking anything for pain. She did take her morning medications which included one baby aspirin. The patient states that she was seen here last year for chest pain but states this feels different. Review of Systems 10 system review was performed and was negative unless stated otherwise history of present illness. Past Medical/Surgical History Medical Problems: (1) Acute cholecystitis due to biliary calculus (2) Anxiety (3) Asthma (4) Bilateral tubal ligation (5) Bronchitis (6) Carpal tunnel syndrome (7) Chest pain (8) Deep venous thrombosis of lower extremity (9) Depression (10) Gastroesophageal reflux disease (11) IBS (12) Incontinence (13) Rotator cuff surgery Family History Depression Diabetes mellitus Hypertension Kidney disease Seizures Social History Smoking Status: Never Smoker Alcohol Use: none Drug Use: none Marital Status: Housing Status: lives alone Occupation Status: retired Current/Historical Medications Scheduled Aspirin (Aspirin 81), 81 MG PO QAM Bupropion HCl (Bupropion HCl Xl), 300 MG PO QAM Desloratadine (Desloratadine Odt), 5 MG PO QAM Escitalopram Oxalate (Lexapro), 5 MG PO DAILY Glimepiride (Glimepiride), 4 MG PO QAM Linagliptin (Tradjenta), 1 TAB PO DAILY Liraglutide (Victoza), 1.2 MG INJ DAILY Lisinopril (Lisinopril), 5 MG PO DAILY Metoprolol Tartrate (Lopressor), 12.5 MG PO BID Omeprazole (Prilosec), 40 MG PO DAILY Ranitidine (Zantac), 150 MG PO BID Scheduled PRN Ibuprofen Tab (Advil), 400-600 MG PO UD PRN for arthritis Physical Exam Vital Signs Date Time Temp Pulse Resp B/P (MAP) Pulse Ox O2 Delivery O2 Flow Rate FiO2 05/21/18 10:54 68 137/92 98 Room Air 05/21/18 09:15 72 19 111/63 92 Room Air 05/21/18 09:05 76 22 113/68 95 Room Air 05/21/18 08:58 72 16 129/80 96 Room Air 05/21/18 08:56 97 Room Air 05/21/18 08:45 97 Room Air 05/21/18 08:27 81 05/21/18 08:14 36.4 77 18 147/94 97 Room Air Physical Exam GENERAL: 72-year-old white female appears in no acute distress. MENTAL Status: Alert and oriented 3. EYES: PERRLA. EOMs intact. NECK: Supple, no lymphadenopathy noted. No carotid bruits noted. LUNGS: Clear auscultation without wheezes rales or rhonchi. CARDIAC: Regular rate and rhythm without murmur. Pulses is full and equal throughout. CHEST WALL: No gross bony deformity noted. No erythema or edema noted. Patient has slight tenderness to palpation over the left lower anterior chest wall. Remainder chest wall is nontender. ABDOMEN: Positive bowel sounds all 4 quadrants. Soft, tenderness palpation epigastric region and left upper quadrant otherwise nontender to palpation without organomegaly or masses. LOWER EXTREMITIES: No erythema or edema noted. Calves are nontender. Medical Decision & Procedures ER Provider Diagnostic Interpretation: CT (CHEST) THORAX WITH CLINICAL HISTORY: 72 years-old Female presenting with Chest pain/abnormal chest x-ray/CT recommended. TECHNIQUE: Multidetector CT imaging of the chest was performed without the use of intravenous contrast. IV contrast: 91 mL of Optiray 320. A dose lowering technique was used consistent with the principles of ALARA (as low as reasonably achievable). COMPARISON: Chest x-ray from earlier today and chest CT from 2006. CT DOSE (mGy.cm): The estimated cumulative dose is 484.46 mGy.cm. FINDINGS: Cardiac Care Unit Nurse topogram: Cholecystectomy clips. On soft tissue windows, normal thyroid and thoracic inlet. No axillary, supraclavicular, hilar, or mediastinal lymphadenopathy. Normal aorta. Top normal heart size. Coronary artery calcification. No pericardial or pleural effusion. Hepatic steatosis. Cholecystectomy clips. On lung windows, minimal dependent changes likely atelectasis. The apparent abnormality seen on chest x-ray does not correlate with a finding on CT. Stable benign 4 mm solid fissural nodule in the left lower lobe. No other focal nodule or infiltrate. Airways patent. No pneumothorax. On bone windows, normal osseous structures. IMPRESSION: 1. The apparent abnormality seen on chest x-ray does not correlate with a finding on CT and was therefore artifactual. No suspicious pulmonary nodule. No acute intrathoracic pathology. 2. Hepatic steatosis. Electronically signed by: Agus Russell M.D. 05/21/2018 9:48 AM CHEST ONE VIEW PORTABLE CLINICAL HISTORY: 72 years-old Female presenting with chest pain. TECHNIQUE: Portable upright AP view of the chest was obtained. COMPARISON: 06/16/2017. FINDINGS: Cardiomediastinal silhouette normal. Apparent 2.8 cm nodule projects over the left apex. No large effusion or pneumothorax. Degenerative changes of the thoracic spine. Upper abdomen normal. IMPRESSION: 1. Apparent 2.8 cm left lower lung nodule. Further evaluation with chest CT recommended. The report will be called/faxed according to standard departmental protocol. Electronically signed by: Agus Russell M.D. 05/21/2018 8:52 AM Dictated Date/Time: 05/21/2018 8:51 AM Laboratory Results 05/21/18 08:45 Red Blood Count 4.07, Mean Corpuscular Volume 85.0, Mean Corpuscular Hemoglobin 29.7, Mean Corpuscular Hemoglobin Concent 35.0, Mean Platelet Volume 9.4, Neutrophils (%) (Auto) 61.4, Lymphocytes (%) (Auto) 27.7, Monocytes (%) (Auto) 6.3, Eosinophils (%) (Auto) 2.6, Basophils (%) (Auto) 0.5, Neutrophils # (Auto) 5.15, Lymphocytes # (Auto) 2.33, Monocytes # (Auto) 0.53, Eosinophils # (Auto) 0.22, Basophils # (Auto) 0.04 05/21/18 08:45 Test 05/21/18 08:45 05/21/18 10:31 White Blood Count 8.40 K/uL (4.8-10.8) Red Blood Count 4.07 M/uL (4.2-5.4) Hemoglobin 12.1 g/dL (12.0-16.0) Hematocrit 34.6 % (37-47) Mean Corpuscular Volume 85.0 fL (80-100) Mean Corpuscular Hemoglobin 29.7 pg (25-34) Mean Corpuscular Hemoglobin Concent 35.0 g/dl (32-36) Platelet Count 353 K/uL (130-400) Mean Platelet Volume 9.4 fL (7.4-10.4) Neutrophils (%) (Auto) 61.4 % Lymphocytes (%) (Auto) 27.7 % Monocytes (%) (Auto) 6.3 % Eosinophils (%) (Auto) 2.6 % Basophils (%) (Auto) 0.5 % Neutrophils # (Auto) 5.15 K/uL (1.4-6.5) Lymphocytes # (Auto) 2.33 K/uL (1.2-3.4) Monocytes # (Auto) 0.53 K/uL (0.11-0.59) Eosinophils # (Auto) 0.22 K/uL (0-0.5) Basophils # (Auto) 0.04 K/uL (0-0.2) RDW Standard Deviation 40.4 fL (36.4-46.3) RDW Coefficient of Variation 13.0 % (11.5-14.5) Immature Granulocyte % (Auto) 1.5 % Immature Granulocyte # (Auto) 0.13 K/uL (0.00-0.02) Prothrombin Time 10.1 SECONDS (9.0-12.0) Prothromb Time International Ratio 1.0 (0.9-1.1) Activated Partial Thromboplast Time 24.7 SECONDS (21.0-31.0) Partial Thromboplastin Ratio 1.0 Anion Gap 8.0 mmol/L (3-11) Est Creatinine Clear Calc Drug Dose 61.4 ml/min Estimated GFR () 93.6 Estimated GFR (Non- 80.8 BUN/Creatinine Ratio 15.9 (10-20) Calcium Level 8.8 mg/dl (8.5-10.1) Total Bilirubin 0.3 mg/dl (0.2-1) Direct Bilirubin < 0.1 mg/dl (0-0.2) Aspartate Amino Transf (AST/SGOT) 12 U/L (15-37) Alanine Aminotransferase (ALT/SGPT) 18 U/L (12-78) Alkaline Phosphatase 115 U/L (45-117) Total Creatine Kinase 47 U/L (26-192) Creatine Kinase MB < 1.0 ng/ml (0.5-3.6) Creatine Kinase MB Ratio (0-3.0) Troponin I < 0.015 ng/ml (0-0.045) Pro-B-Type Natriuretic Peptide 204 pg/ml (0-900) Total Protein 7.6 gm/dl (6.4-8.2) Albumin 3.4 gm/dl (3.4-5.0) Lipase 179 U/L (73-393) Bedside Troponin I < 0.030 ng/ml (0-0.045) Medications Administered Medications (Trade) Dose Ordered Sig/Christina Route Start Time Stop Time Status Last Admin Dose Admin Aspirin (Aspirin Chew) 324 mg NOW STAT PO 05/21/18 08:31 05/21/18 08:33 DC 05/21/18 08:59 324 MG Nitroglycerin (Nitrostat Tab) 0.4 mg PRN PRN SL 05/21/18 08:45 06/20/18 08:44 05/21/18 09:00 0.4 MG ECG Per My Interpretation Rhythm: normal sinus Findings: no acute ischemic change ED Course The patient was evaluated. The patient's EMR med patient list were reviewed. The patient had a normal stress test last year when she was admitted for chest pain. At that time her troponins were normal. IV access was obtained. The patient was placed on a monitor and continuous pulse ox. EKG was ordered interpreted by myself as above without any acute findings. Portable chest x- ray was ordered interpreted by the radiologist as above with an abnormal finding of a possible 2.8 cm left lower lung nodule. A CT was recommended for follow-up. CT was interpreted by the radiologist as above without any evidence of the pulmonary nodule seen on the chest x-ray therefore this was most likely artifact. The patient was informed of the findings. CBC and differential, renal profile, LFTs and lipase levels were ordered. Coags, CK-MB, troponin 2 was ordered. The patient was given 324 mg of chewable baby aspirin. She was given nitroglycerin sublingual. After her first dose she had significant relief of her pain. Labs are reviewed. CBC and differential and chemistries were normal. Coags were normal. The patient's first troponin was negative. Second troponin was also within normal range. The patient had an episode of a sharp stabbing pain in the left chest which radiated into her left arm and the nurse took a second EKG which did not reveal any acute ST changes. The patient was reevaluated was feeling fine. The patient was independently evaluated by Dr. Alvarado who agree with treatment plan. I had the disease case manager set of appointment with Dr. Louis for follow-up. The patient was discharged home in stable condition. Medical Decision Differential diagnosis include acute gastritis, peptic ulcer disease, acute [place], pleuritic chest pain, angina [place] Drug Monitoring Program Search Results: patient reviewed within database Medication Reconcilliation Current Medication List: was personally reviewed by me Blood Pressure Screening Patient's blood pressure: Normal blood pressure Impression Primary Impression: Chest pain Departure Information Dispostion Home / Self-Care Condition GOOD Referrals Aldair Ojeda M.D. (PCP) Tang Louis, DO Forms IMPORTANT VISIT INFORMATION Patient Instructions Chest Pain - [facility], [facility] Additional Instructions Continue all your medications as prescribed. Follow-up with Dr. Louis. If you experience any severe chest pain, shortness of breath, diaphoresis, severe headache return to the ER immediately Problem Qualifiers Primary Impression: Chest pain Chest pain type: unspecified Qualified Codes: R07.9 - Chest pain, unspecified
[2018-05-21 11:58] VITALS: BP 136/72; PULSE 72; O2SAT 96
== END 2018-05-21 11:59 | disposition home or self-care (01) ==
LOC: C.EDB 08:09 → C.EDA 11:59
DX: R07.9 Chest pain, unspecified (principal); J45.909 Unspecified asthma, uncomplicated; F41.9 Anxiety disorder, unspecified; Z86.718 Personal history of other venous thrombosis and embolism; F32.9 Major depressive disorder, single episode, unspecified; K21.9 Gastro-esophageal reflux disease without esophagitis; K58.9 Irritable bowel syndrome, unspecified; Z79.82 Long term (current) use of aspirin; Z79.899 Other long term (current) drug therapy